=== PATIENT | male | born 1965 | race Caucasian/White ===

== ENCOUNTER → 2019-03-17 13:55 | Oncology outpatient (ONC) | payer OTHER, SELFPAY ==
--- NOTE | 2019-03-17 14:30 | P.CONONC_ITS ---
History of Present Illness - Data of Consult Patient: new to practice Consult date: 03/17/19 Requesting Physician: Hannah Baker MD Primary Care Provider: Hannah Baker MD - Consult Narrative Reason for consult: Prostate cancer Narrative: Valentin Obando is a 53 year old male. About in 2018, he was found to have an elevated PSA at 3. Three months later, it increased to 5. He then underwent biopsy of the prostate gland. GS was high per patient. Surgery and XRT were discussed. He opted and underwent radical prostatectomy. After the surgery, he moved to [place]. Recently, his PSA was < 0.01 on 02/24/2019. He has eretile dysfunction, and urinary urgency in the morning. no pain in the pelvic area. He denies any pain in the bone. He is here to establish care. No medical records available for review. We will request the medical records from [place]. CC: Noemy España MD Patient reports pain?: No Home Medications and Allergies Home Medications Medication Instructions Recorded Confirmed Type amlodipine 10 mg PO DAILY 03/17/19 03/17/19 History fluticasone propion-salmeterol 1 inh INHALATION BID 03/17/19 03/17/19 History [Advair Diskus] ipratropium bromide [Atrovent HFA] 1 puff INHALATION Q6H 03/17/19 03/17/19 History losartan 50 mg PO DAILY 03/17/19 03/17/19 History oxybutynin chloride 5 mg PO TID 03/17/19 03/17/19 History tadalafil [Cialis] 20 mg PO DAILY PRN 03/17/19 03/17/19 History Allergies Allergy/AdvReac Type Severity Reaction Status Date / Time No Known Drug Allergies Allergy Verified 03/17/19 14:47 Medical History - Medical, Surgical, Family History Medical History: Medical History (Updated 03/17/19 @ 14:48 by Noemy España MD) COPD (chronic obstructive pulmonary disease) Hypertension Kidney stone Smoking Surgical History: Surgical History (Updated 03/17/19 @ 14:43 by Noemy España MD) H/O prostatectomy Family History: Family History (Updated 03/17/19 @ 14:43 by Noemy España MD) Other Prostate cancer - Social History Smoking Status: Current every day smoker Smoking packs per day: 1 Years smoked: 30 Substance Use Type: does not use Alcohol Intake Frequency: 0-2 drinks per day (WINE) Review of Systems All systems PM: reviewed and no additional remarkable complaints except as stated Exam Vital signs: Last Vital Signs Temp 98.6 F 03/17/19 14:41 Pulse 85 03/17/19 14:41 Resp 16 03/17/19 14:41 BP 124/80 03/17/19 14:41 Pulse Ox 98 03/17/19 14:41 ECOG 1 Narrative: Gen: WDWN, NAD, pleasant and cooperative. HEENT: NCAT, EOMI, PERRLA, anicteric sclera. Neck: Supple, No palpable thyromegaly or lymphadenopathy. Respiratory: CTAB, no wheezes audible. No JVD Cardiovascular: RRR, S1 and S2 normal, no M/G/R. Abdomen: Soft, NTND, BS normal, no palpable organomegaly Extremities: No LE pitting edema. Lymphatic: no palpable lymph nodes in the neck, axillae, or groins. Neurological: AOx3, CN II-XII grossly intact. No focal motor or sensory deficit. Psychiatric: Good judgment and insight; normal affect; normal thought process; c ooperative, no depression, no anxiety. Results - Labs I reviewed the lab tests from Dr. Baker is office on 02/24/2019. Assessment and Plan (1) Prostate cancer 53 year old was found to have a screening PSA about 3-5 in 2018. He was diagnosed with prostate cancer after biopsy. He then had radical prostatectomy. He moves from [place] to [facility]. He comes here today for establishing care. Clinically I do not think there is any evidence to suggest disease recurrence or metastasis. PSA was < 0.01 on 02/24/2019. I talked with him that I will continue regular checkup of PSA and testosterone level. I will also request medical records from [place] Plan: 1. Medical Records from [place] 2. RTC in 3 months, CBC, CMP, PSA/T
[2019-03-17 14:41] VITALS: BP 124/80; PULSE 85; RESP 16; TEMP 37; O2SAT 98
== END ==
PROVIDERS: PCP Family Medicine; Visit Provider Internal Medicine Hematology & Oncology
DX: Z08 Encounter for follow-up examination after completed treatment for malignant neoplasm (principal); J44.9 Chronic obstructive pulmonary disease, unspecified; F17.210 Nicotine dependence, cigarettes, uncomplicated; Z85.46 Personal history of malignant neoplasm of prostate
CPT/HCPCS: 99204; 99214

== ENCOUNTER → 2019-07-06 12:37 | Outpatient (CLI) | payer OTHER, SELFPAY ==
[2019-07-06 15:38] LABS: Prostate Specific Antigen < 0.064 ng/mL (0.10-4.00)
== END ==
PROVIDERS: PCP Family Medicine; Visit Provider Specialist
DX: N40.1 Benign prostatic hyperplasia with lower urinary tract symptoms (principal)
CPT/HCPCS: 36415; 84153

== ENCOUNTER 2019-07-13 18:59 | Emergency (ER) | payer OTHER, SELFPAY ==
[2019-07-13 19:04] VITALS: BP 146/89; PULSE 101; RESP 17; TEMP 38; O2SAT 95; BMI 29.4
--- NOTE | 2019-07-13 19:27 | DI.RAD.S_ITS ---
PROCEDURE: XR CHEST 2V INDICATIONS: shortness of breath TECHNIQUE: 2 views of the chest were acquired. COMPARISON: None. FINDINGS: Surgical changes and devices: None. Lungs and pleura: Lungs are clear. No pleural effusions or pneumothorax. Mediastinum: Mediastinal contours are normal. Heart size is normal. Bones and chest wall: No suspicious bony abnormalities. Soft tissues appear unremarkable. IMPRESSION: No acute cardiopulmonary abnormality. Dictated by: Alfredo Alvarado M.D. on 07/13/2019 at 20:07 Approved by: Alfredo Alvarado M.D. on 07/13/2019 at 20:07
--- NOTE | 2019-07-13 19:30 | ED.SOB ---
HPI - SOB/Dyspnea General Chief Complaint: Shortness of Breath/Dyspnea Stated Complaint: COUGH LOW OXYGEN Time Seen by Provider: 07/13/19 19:30 Source: patient Mode of arrival: Ambulatory Limitations: no limitations History of Present Illness HPI Narrative: The patient complains of dyspnea for 1 week. He smokes 1 pack per day of cigarettes, he is also on inhalers. The dyspnea has progressed across the week. He developed a cough that is now productive cough. He was seen at the walk-in clinic before coming here. He was noted to have tightness with deep breath as well as productive cough. He was found to have a low-grade fever upon arrival here, he was unaware of fever. He denies here pressure or sinus pressure. He has a mild sore throat. He has tightness is anterior chest, especially with cough. He has no GI symptoms. He has no orthopnea or peripheral edema. He takes medications for hypertension in addition to COPD. He has no cardiac history. His no history of CHF. Related Data Home Medications Medication Instructions Recorded Confirmed fluticasone-salmeterol INHALATION 12/22/18 07/13/19 sildenafil PO 12/22/18 12/22/18 Previous Rx's Medication Instructions Recorded albuterol sulfate 90 mcg/actuation 2 puff INHALATION Q4-6H PRN #8.5 12/22/18 aerosol inhaler gram ipratropium bromide 17 1 puff INHALATION QID #12.9 gram 12/22/18 mcg/actuation HFA aerosol inhaler amoxicillin-pot clavulanate 1 tab PO BID #14 tab 07/13/19 [Augmentin] prednisone 60 mg PO DAILY 5 Days #15 tab 07/13/19 Allergies Allergy/AdvReac Type Severity Reaction Status Date / Time No Known Drug Allergies Allergy Verified 07/13/19 19:04 Review of Systems Review of Systems ROS Unobtainable: All systems reviewed & are unremarkable except as noted in HPI and below Constitutional Constitutional: Denies chills, Denies fever(s), Denies headache(s), Denies lethargy and Denies weakness Eyes Eyes: Denies change in vision and Denies eye discharge ENT Ears, Nose, Mouth, and Throat: Denies change in voice, Denies dizziness, Denies otalgia, Denies headache(s), Denies neck pain and Reports sore throat Cardiovascular Cardiovascular: Reports dyspnea Comments: Central sternal chest pain increased with cough. Respiratory Respiratory: Reports cough, Reports dyspnea and Reports wheezing Gastrointestinal Gastrointestinal: Denies abdominal pain, Denies diarrhea, Denies nausea and Denies vomiting Musculoskeletal Musculoskeletal: Denies neck pain Comments: No extremity pain or edema Integumentary/Breasts Skin/Breast: Denies erythema and Denies rash Neurologic Neurologic: Denies confusion, Denies dizziness, Denies headache(s) and Denies weakness Psychiatric Psychiatric: Denies confusion and Denies depression Allergic/Immunologic Allergic/Immunologic: Reports wheezing [facility] Medical History Hypertension (Acute) Surgical History (Updated 07/13/19 @ 19:52 by Carlos Payton MD) No pertinent past surgical history (Acute) Social History Smoking Status: Current every day smoker Social History Smoking Status: Current every day smoker Exam Initial Vital Signs Initial Vital Signs: Vital Signs Temperature 100.4 F H 07/13/19 19:04 Pulse Rate 101 H 07/13/19 19:04 Respiratory Rate 17 07/13/19 19:04 Blood Pressure 146/89 H 07/13/19 19:04 Pulse Oximetry 95 07/13/19 19:04 Const General: cooperative, healthy appearing and well developed Nutritional Appearance: well nourished Orientation: alert, awake, oriented x3 and not confused [facility] Head: normocephalic and atraumatic Nose: external nose normal Face and sinus: sinuses nontender Mouth: oral mucosae normal and moist mucous membranes Throat: tonsils normal and uvula midline Eyes General: appearance normal, both eyes and all related structures Neck Neck: supple, No lymphadenopathy and No JVD Chest Other: Tenderness across the sternum with palpation. Resp Effort & Inspection: cough, no stridor and not tachypneic Other: Wheezes RLL. Cardio Palpation: normal PMI Rate: regular rate Rhythm: regular rhythm Heart Sounds: S1 normal, S2 normal, no click, no gallops and no murmurs GI Inspection: non-distended Palpation: soft, no hepatosplenomegaly, No guarding and No tender Auscultation: normal bowel sounds Back/Spine/Pelvis Back: No CVA tenderness Skin General: no rashes or lesions noted Neuro General: alert, awake and oriented x3 Extrem General: No calf tenderness and No edema Psych Appearance: well kempt Mental Status: mental status grossly normal Attitude: cooperative Thought Content: normal Judgment: judgment good Course Course Course Narrative: The patient's symptoms resolved significantly with IV Solu-Medrol, as well as an additional neb. There is no indication severe infection, but is a smoker with COPD and fever with productive cough. His chest x-ray is clear. I have started him on Augmentin for chronic bronchitis. He will be discharged on Augmentin, prednisone as well as his regular neb treatment. Orders Ordered: ED Orders 07/13/19 19:26 EKG-12 Lead Stat 07/13/19 19:27 XR chest 2V Stat Measure peak expiratory flow ONCE RT Consult Eval and Treat Now 07/13/19 20:19 Complete Blood Count AUTO DIFF Stat Comprehensive Metabolic Panel Stat Lactate (Lactic Acid) Stat 07/13/19 21:41 FLU A and B [Influenza A and B by PCR Rapid] Stat Discontinued Medications Albuterol (Ventolin) 2.5 mg INH NOW ONE Stop: 07/13/19 19:27 Last Admin: 07/13/19 19:45 Dose: 2.5 mg Documented by: RENE Albuterol/Ipratropium (Duoneb) 3 ml INH NOW ONE Stop: 07/13/19 19:42 Last Admin: 07/13/19 22:07 Dose: 3 ml Documented by: ABDIRIZAK Amoxicillin/Clavulanate Potassium (Augmentin 875-125 Mg) 1 tab PO NOW ONE Stop: 07/13/19 21:49 Last Admin: 07/13/19 21:54 Dose: 1 tab Documented by: NICK Methylprednisolone (Solu-Medrol 125 Mg Vial) 125 mg IV NOW ONE Stop: 07/13/19 19:42 Last Admin: 07/13/19 20:39 Dose: 125 mg Documented by: NICK Vital Signs Vital signs: Vital Signs - 8 hr 07/13/19 19:46 07/13/19 21:00 07/13/19 21:30 Temperature 99.7 F H Pulse Rate 92 H 94 H 93 H Respiratory Rate 13 22 16 Blood Pressure [Left Arm] 148/90 H 119/86 Pulse Oximetry 100 95 95 MDM - SOB/Dyspnea Lab Data Result diagrams: 07/13/19 20:19 07/13/19 20:19 Labs: Lab Results 07/13/19 07/13/19 07/13/19 Range/Units 20:19 20:19 20:19 WBC 10.4 (4.5-11.0) X10^3/uL RBC 4.80 (4.5-5.9) X10^6/uL Hgb 15.3 (13.5-17.5) g/dL Hct 44.5 (41-53) % MCV 92.8 (80-100) fL MCH 31.9 (26-34) PG MCHC 34.4 (30-36) % RDW 13.2 (11.6-14.8) % Plt Count 134 L (150-400) X10^3/uL Neut % (Auto) 76.0 H (50-75) % Lymph % (Auto) 12.3 L (25-40) % [place] % (Auto) 9.5 (3-14) % Eos % (Auto) 1.6 L (2-4) % Baso % (Auto) 0.6 (0-2) % Neut # (Auto) 7900 H (9284-5862) /uL Lymph # (Auto) 1300 (6741-5432) /uL [place] # (Auto) 1000 H (0-900) /uL Eos # (Auto) 200 (0-450) /uL Baso # (Auto) 100 (0-100) /uL Sodium 138 (137-145) mmol/L Potassium 3.9 (3.4-5.1) mmol/L Chloride 103 (98-107) mmol/L Carbon Dioxide 25 (22-32) mmol/L BUN 19 (9-20) mg/dL Creatinine 0.90 (0.66-1.25) mg/dL Estimated GFR > 60.0 (>60) mL/min BUN/Creatinine Ratio 21.1 (6-22) Glucose 113 H (70-100) mg/dL Lactate 1.1 (0.7-2.1) mmol/L Calcium 9.3 (8.4-10.2) mg/dL Total Bilirubin 0.8 (0.2-1.3) mg/dL AST 25 (17-59) IU/L ALT 33 (21-72) IU/L Alkaline Phosphatase 95 (38-126) U/L Total Protein 7.4 (6.3-8.2) g/dL Albumin 4.4 (3.5-5.0) g/dL Globulin 3.0 (1.7-4.1) g/dL Albumin/Globulin Ratio 1.5 (1.0-2.8) Influenza A & B (PCR) (Negative) 07/13/19 Range/Units 21:41 WBC (4.5-11.0) X10^3/uL RBC (4.5-5.9) X10^6/uL Hgb (13.5-17.5) g/dL Hct (41-53) % MCV (80-100) fL MCH (26-34) PG MCHC (30-36) % RDW (11.6-14.8) % Plt Count (150-400) X10^3/uL Neut % (Auto) (50-75) % Lymph % (Auto) (25-40) % [place] % (Auto) (3-14) % Eos % (Auto) (2-4) % Baso % (Auto) (0-2) % Neut # (Auto) (0267-4998) /uL Lymph # (Auto) (8411-2497) /uL Ad[place] # (Auto) (0-900) /uL Eos # (Auto) (0-450) /uL Baso # (Auto) (0-100) /uL Sodium (137-145) mmol/L Potassium (3.4-5.1) mmol/L Chloride (98-107) mmol/L Carbon Dioxide (22-32) mmol/L BUN (9-20) mg/dL Creatinine (0.66-1.25) mg/dL Estimated GFR (>60) mL/min BUN/Creatinine Ratio (6-22) Glucose (70-100) mg/dL Lactate (0.7-2.1) mmol/L Calcium (8.4-10.2) mg/dL Total Bilirubin (0.2-1.3) mg/dL AST (17-59) IU/L ALT (21-72) IU/L Alkaline Phosphatase (38-126) U/L Total Protein (6.3-8.2) g/dL Albumin (3.5-5.0) g/dL Globulin (1.7-4.1) g/dL Albumin/Globulin Ratio (1.0-2.8) Influenza A & B (PCR) Negative (Negative) Imaging Data Chest x-ray: Radiologist's impression: [address] [address] XRay Report Signed Patient: Valentin Obando PMR#: [id number] : 1965Acct:[id number] Age/Sex: 54 / MDate of Service: 07/13/19 Loc: ED Accession Number: [id number] Procedure: XR chest 2V Ordering Provider: Carlos Payton MD PROCEDURE: XR CHEST 2V INDICATIONS: shortness of breath TECHNIQUE: 2 views of the chest were acquired. COMPARISON: None. FINDINGS: Surgical changes and devices: None. Lungs and pleura: Lungs are clear. No pleural effusions or pneumothorax. Mediastinum: Mediastinal contours are normal. Heart size is normal. Bones and chest wall: No suspicious bony abnormalities. Soft tissues appear unremarkable. IMPRESSION: No acute cardiopulmonary abnormality. Dictated by: Alfredo Alvarado M.D. on 07/13/2019 at 20:07 Approved by: Alfredo Alvarado M.D. on 07/13/2019 at 20:07 ECG Data Attestation: I personally reviewed and interpreted this ECG as follows: Discharge Plan Departure Patient Disposition: Home Clinical Impression: Asthma exacerbation in COPD Chronic bronchitis Qualifiers: Chronic bronchitis type: mucopurulent Qualified Code(s): J41.1 - Mucopurulent chronic bronchitis Discharge Date/Time: 07/13/19 22:14 Instructions: Chronic Bronchitis Activity Restrictions/Additional Instructions: Use your inhaler as previously directed. Prednisone 60 mg daily x5 days. Augmentin 2 times daily for 7 days. I recommend he stop smoking cigarettes. Follow-up with her doctor later this week for recheck. Return the ER for increasing difficulty breathing or chest pain. Prescriptions: New amoxicillin-pot clavulanate [Augmentin] 875-125 mg tablet 1 tab PO BID Qty: 14 RF: 0 prednisone 20 mg tablet 60 mg PO DAILY 5 Days Qty: 15 RF: 0 No Action fluticasone-salmeterol INHALATION RF: 0 sildenafil PO RF: 0 albuterol sulfate 90 mcg/actuation HFA aerosol inhaler 2 puff INHALATION Q4-6H PRN (Reason: shortness of breath or wheezing) Qty: 8.5 RF: 0 ipratropium bromide 17 mcg/actuation HFA aerosol inhaler 1 puff INHALATION QID Qty: 12.9 RF: 0
[2019-07-13] MEDS: ALBUTEROL 2.5 MG/3 ML NEB (ADULT) INH (19:45)
[2019-07-13 19:46] VITALS: PULSE 92; RESP 13; O2SAT 100
--- NOTE | 2019-07-13 19:54 | PC.NURSE ---
respiratory therapy at bedside
[2019-07-13 20:32] LABS: Add Manual Diff / Slide Review NO; Basophils Absolute Auto 100 /uL (0-100); Basophils Percent Auto 0.6 % (0-2); Eosinophils Absolute Auto 200 /uL (0-450); Eosinophils Percent Auto 1.6 % (2-4); Hematocrit 44.5 % (41-53); Hemoglobin 15.3 g/dL (13.5-17.5); Lymphocytes Absolute Auto 1300 /uL (1100-4500); Lymphocytes Percent Auto 12.3 % (25-40); Mean Corpuscular HGB Conc 34.4 % (30-36); Mean Corpuscular Hemoglobin 31.9 PG (26-34); Mean Corpuscular Volume 92.8 fL (80-100); Monocytes Absolute Auto 1000 /uL (0-900); Monocytes Percent Auto 9.5 % (3-14); Neutrophils Absolute Auto 7900 /uL (1500-7000); Platelet Count 134 X10^3/uL (150-400); Red Cell Distribution Width 13.2 % (11.6-14.8); White Blood Cell Count 10.4 X10^3/uL (4.5-11.0)
[2019-07-13] MEDS: methylPREDNISolone 125 MG/2 ML VIAL IV (20:39)
[2019-07-13 20:42] LABS: Alanine Aminotransferase 33 IU/L (21-72); Albumin 4.4 g/dL (3.5-5.0); Albumin Globulin Ratio 1.5 (1.0-2.8); Alkaline Phosphatase 95 U/L (38-126); Aspartate Aminotransferase 25 IU/L (17-59); BUN Creatinine Ratio 21.1 (6-22); Bilirubin Total 0.8 mg/dL (0.2-1.3); Blood Urea Nitrogen 19 mg/dL (9-20); Calcium 9.3 mg/dL (8.4-10.2); Carbon Dioxide 25 mmol/L (22-32); Chloride 103 mmol/L (98-107); Estimated Glomerular Filt Rate > 60.0 mL/min (>60); Glucose 113 mg/dL (70-100); HEMOLYSIS < 15 (0-50); Lactate (Lactic Acid) 1.1 mmol/L (0.7-2.1); Potassium 3.9 mmol/L (3.4-5.1); Sodium 138 mmol/L (137-145); Total Protein 7.4 g/dL (6.3-8.2)
[2019-07-13 21:00] VITALS: BP 148/90; PULSE 94; RESP 22; O2SAT 95
[2019-07-13 21:30] VITALS: BP 119/86; PULSE 93; RESP 16; TEMP 37.6; O2SAT 95
[2019-07-13] MEDS: AMOXICILLIN/CLAV 875/125 MG 1 TAB PO (21:54)
[2019-07-13 22:07] LABS: Influenza A and B by PCR Rapid Negative (Negative)
[2019-07-13] MEDS: ALBUTEROL/IPRATROPIUM 3 ML AMPUL INH (22:07)
== END 2019-07-13 22:14 | disposition home or self-care (01) ==
PROVIDERS: Emergency Provider Emergency Medicine
DX: J41.1 Mucopurulent chronic bronchitis (principal)
CPT/HCPCS: 36415; 71046; 80053; 83605; 85025; 87400; 87502; 93005; 93010; 94150; 94640; 96374; 99282; 99285; J2930; J7613

== ENCOUNTER → 2021-01-06 10:13 | Outpatient (CLI) | payer OTHER, SELFPAY ==
--- NOTE | 2021-01-06 | DI.RAD.S_ITS ---
PROCEDURE: XR SHOULDER LT MIN 2V INDICATIONS: Shoulder pain TECHNIQUE: 3 views of the shoulder were acquired. COMPARISON: [facility], CR, XR SHOULDER RT MIN 2V, 01/06/2021, 10:15. [facility], CR, XR CHEST 2V, 07/13/2019, 19:26. FINDINGS: Bones: Very shallow appearance of the glenoid. Osseous structures otherwise intact and normal in appearance. Soft tissues: No suspicious soft tissue calcifications. IMPRESSION: Very shallow and dysmorphic appearance of the glenoid (finding also noted on the right on the comparison chest radiograph from June 2019). Osseous structures otherwise intact and normal in appearance. Consider shoulder CT for more comprehensive evaluation. Dictated by: Esau Brito M.D. on 01/06/2021 at 10:42 Approved by: Esau Brito M.D. on 01/06/2021 at 10:43
--- NOTE | 2021-01-06 | DI.RAD.S_ITS ---
PROCEDURE: XR SHOULDER RT MIN 2V INDICATIONS: shoulder pain TECHNIQUE: 3 views of the shoulder were acquired. COMPARISON: None. FINDINGS: Bones: Shallow and dysmorphic appearance of the glenoid (a finding also present on the left). No significant degenerative changes or other significant abnormality. Soft tissues: No suspicious soft tissue calcifications. IMPRESSION: Shallow in dysmorphic appearance of the glenoid. Consider shoulder CT for more comprehensive evaluation. Dictated by: Esau Brito M.D. on 01/06/2021 at 10:43 Approved by: Esau Brito M.D. on 01/06/2021 at 10:44
== END ==
PROVIDERS: PCP Family Medicine; Referring Provider Family Medicine; Visit Provider Family Medicine
DX: M25.512 Pain in left shoulder (principal); M25.511 Pain in right shoulder
CPT/HCPCS: 73030

== ENCOUNTER → 2021-01-16 11:08 | Outpatient (CLI) | payer OTHER, SELFPAY ==
--- NOTE | 2021-01-16 | DI.RAD.S_ITS ---
PROCEDURE: XR CERVICAL SPINE 2V OR 3V INDICATIONS: NECK PAIN TECHNIQUE: 3 view(s) of the cervical spine were acquired. COMPARISON: None. FINDINGS: Bones: No fractures or dislocations to the C7 level. The lateral masses of C1 appear intact on the odontoid view. No suspicious bony lesions. Mild C4-C5 and C5-C6 degenerative disc disease. Mild C6-C7 facet arthropathy. Mild bilateral C4-C5 and C5-C6 uncovertebral joint hypertrophy. Soft tissues: No prevertebral soft tissue swelling. IMPRESSION: 1. Multilevel degenerative disc disease. 2. Multilevel facet and uncovertebral arthropathy. 3. No fracture. No acute osseous lesion. If symptoms and/or clinical suspicion for pathology persists, evaluation with MRI should be considered for further assessment. Dictated by: Diana Keane MD, PhD on 01/16/2021 at 17:30 Approved by: Diana Keane MD, PhD on 01/16/2021 at 17:31
--- NOTE | 2021-01-16 11:10 | DI.MRI.S_ITS ---
PROCEDURE: MR PELIS WO/W CON INDICATIONS: Prostate cancer TECHNIQUE: Coronal HASTE, axial T1 FSE with fat saturation, 3-plane nonbreath-hold T2 FSE. After the administration of contrast, dynamic axial, delayed axial and coronal VIBE or 2-D FLASH with fat saturation through the pelvis. Optional diffusion weighted imaging and ADC may be performed. COMPARISON: None. FINDINGS: Image quality: Good. Prostate: Surgically absent. Genitourinary system: Bladder is unremarkable. Distal ureters are non distended. Bilateral hydroceles. Bowel and peritoneum: No pathologic free pelvic fluid. Inferior colon and small bowel loops are normal in caliber. Nodes and vessels: No pelvic or inguinal adenopathy by size criteria. Iliac vessels are normal in caliber. Soft tissues: No definite inguinal hernias. Bones: Marrow demonstrates normal overall signal, without lesions to suggest metastases. IMPRESSION: Post prostatectomy. No enlarged nodes seen. Bilateral hydroceles. Dictated by: Alfredo Alvarado M.D. on 01/16/2021 at 19:55 Approved by: Alfredo Alvarado M.D. on 01/16/2021 at 20:07
== END ==
PROVIDERS: Family Provider Family Medicine; PCP Family Medicine; Referring Provider Specialist; Visit Provider Specialist
DX: C61 Malignant neoplasm of prostate (principal); N43.3 Hydrocele, unspecified; M50.121 Cervical disc disorder at C4-C5 level with radiculopathy; M47.22 Other spondylosis with radiculopathy, cervical region
CPT/HCPCS: 72040; 72197

== ENCOUNTER 2021-02-21 16:45 | Outpatient (RCR) | payer OTHER, SELFPAY ==
--- NOTE | 2021-01-15 17:30 | PT.OIE ---
Current Diagnoses Brachial plexus disorders (01/15/21) Pain in right shoulder (01/15/21) Pain in left shoulder (01/15/21) Adhesive capsulitis of right shoulder (01/15/21) Adhesive capsulitis of left shoulder (01/15/21) Past Medical History (Last Updated 11/29/20 @ 10:46 by Hilton Mckeon MD) COPD (chronic obstructive pulmonary disease) Erectile dysfunction after radical prostatectomy Excessive daytime sleepiness Hypertension Insomnia Kidney stone Nicotine dependence, unspecified, uncomplicated Obstructive sleep apnea Prostate cancer Prostate cancer Past Surgical History (Last Reviewed 10/05/20 @ 18:05 by Hilton Mckeon MD) H/O prostatectomy No pertinent past surgical history Visit Care Team Role Provider Type Hannah Baker MD Attending Provider Physician Family Provider Primary Care Provider Referring Provider Specialty: Family Practice Address: [address] [place] [address], [facility] Email: [email or web address] Physical Therapy Initial Evaluation PT-OP-A Visit Information Start: 01/15/21 17:34 Freq: Status: Active Protocol: Document 01/15/21 16:45 DCW (Rec: 01/15/21 17:50 DCW [id number]) Out-Patient Physical Therapy Visit Information Visit Information Visit Type Initial Evaluation Visit Start Time 16:45 Visit Stop Time 17:30 Total Visit Minutes 45 Visit Number 1 Number of DIESEL SERVICE JOURNEYMAN Visits 0 Evaluation Information Evaluation Date 01/15/21 PT-OP-B Current Condition Start: 01/15/21 17:34 Freq: Status: Active Protocol: Document 01/15/21 16:45 DCW (Rec: 01/15/21 17:50 DCW [id number]) Current Condition History of Current Condition Onset Date Multi-year history Current Complaints Bilateral arm numbness/ tingling, limited bilateral shoulder ROM History of Current Condition Pt is a 55 year old male presenting with a multi-year history of bilateral shoulder pain and stiffness. Pt reports he has always had very poor ROM when lifting his arms out to the side, but it has worsened over the last few years. Pt additionally is frequently woken up at night by tingling and numbness in his hands and arms. Pt reports putting on his jacket is troublesome. When lifting his arms into abduction, pt notes it feels like the muscles just bind up. Prior Treatments and Tests Shoulder x-ray: IMPRESSION: Shallow in dysmorphic appearance of the glenoid. Consider shoulder CT for more comprehensive evaluation. Per : Esau Brito M.D. on 2020 PT-OP-C Subjective Start: 01/15/21 17:34 Freq: Status: Active Protocol: Document 01/15/21 16:45 DCW (Rec: 01/15/21 17:50 DCW [id number]) OP-PT Subjective Patient Comments Patient Comments My arms fall asleep all the time. Just in bed, or when I'm riding my motorcycle. I can't ride my motorcycle for more than 15 minutes without my arms falling asleep. Patient Questionnaires Quick Dash- Upper Extremity Quick Dash UE Score 45.45% Quick Dash UE Impairment 40 to 59% Impaired (Score 40- 59) OP-PT Pain Assessment Pain Assessment Grid Paper Pain Assessment Grid Completed Yes Location Bilateral Shoulder Intensity 4 Scale Used Numeric (0 - 10) PT-OP-E Functional Tests Start: 01/15/21 17:34 Freq: Status: Active Protocol: Document 01/15/21 16:45 DCW (Rec: 01/16/21 13:58 DCW [id number]) Functional Tests Apley's Scratch Test Action 2- Left T3 Action 2- Right T3 Action 3- Left L2 Action 3- Right L2 PT-OP-F Manual Assessment Start: 01/15/21 17:34 Freq: Status: Active Protocol: Document 01/15/21 16:45 DCW (Rec: 01/16/21 13:58 DCW [id number]) Manual Assessments Soft Tissue Assessment Soft Tissue Mobility Assessment Moderate tone and tenderness to palpation 3/4: wincing and withdraw along bilateral upper trap, bilateral scalenes Moderate tone and tenderness to palpation 2/4: pain with wincing bilateral supraspinatus PT-OP-K Range of Motion Start: 01/15/21 17:34 Freq: Status: Active Protocol: Document 01/15/21 16:45 DCW (Rec: 01/16/21 13:58 DCW [id number]) Shoulder Goniometric Range of Motion Shoulder Right Passive Flexion 170 Abduction 170 Right Active Testing Position Sitting Flexion 158 Abduction 92 Left Passive Shoulder ROM WFL Yes Testing Position Supine Flexion 170 Abduction 170 Left Active Testing Position Sitting Flexion 160 Abduction 96 PT-OP-L Special Tests Start: 01/15/21 17:34 Freq: Status: Active Protocol: Document 01/15/21 16:45 DCW (Rec: 01/16/21 13:58 DCW [id number]) Special Tests Shoulder Special Tests Painful Arc Test Results Negative Bilaterally Speed's Biceps Test Results Negative Bilaterally Passive ER Rotator Cuff Test Results Negative Bilaterally Lift-Off Rotator Cuff Test Results Negative Bilaterally Leonard Vamsi Impingement Test Results Negative Bilaterally Empty Can Test Results Negative Bilaterally Belly Press Test Results Negative Bilaterally Apprehension Test Test Results Negative Bilaterally PT-OP-Q Treatments Start: 01/15/21 17:34 Freq: Status: Active Protocol: Document 01/15/21 16:45 DCW (Rec: 01/16/21 13:58 DCW [id number]) Therapeutic Exercises Sitting Exercises 1 Sitting Exercise Name Upper trap stretch Side bilateral PT-OP-T Assessment and Plan Start: 01/15/21 17:34 Freq: Status: Active Protocol: Document 01/15/21 16:45 DCW (Rec: 01/16/21 13:58 [facility] [id number]) Physical Therapy Assessment Rehab Potential Rehabilitation Potential Good Evaluation Complexity Number of Personal Factors/Comorbidities 1-2 Number of Body Systems Impaired 1-2 Clinical Presentation at Evaluation Evolving Impairments Impairments Functional Activities, Functional Mobility,Pain,ROM, Soft Tissue Mobility,Strength, Tone Goals Three Impairment Shoulder pain when donning/ doffing jacket Biology Intern Goal (LTG) Pt to exhibit improvement in bilateral shoulder IR to reach at least T10 to enable him to don/doff jacket without increased pain. LTG Duration 03/13/21 Two Impairment Pt wakes up nightly around 3 am due to tingling in his arms Care Home Goal (LTG) Pt to report sleeping through the night at least 4 nights a week without waking due to arm and hand tingling. LTG Duration 03/13/21 One Impairment Pt does not have an appropriate home exercise program Short Term Goal (STG) Pt to be independent and compliant with an appropriate HEP STG Duration 02/13/21 Assessment Summary Assessment Pt presents with signs and symptoms which may be indicative of Thoracic Outlet Syndrome vs bilateral supraspinatus tears. Pt's complaints of waking up during the night with tingling and numbness, as well as numbness when riding his motorcycle, combined with his moderate tone in his scalenes, could be the result of TOS. On the other hand, pt limited AROM into abduction may suggest supraspinatus involvement, however pt did not demonstrate any positive rotator cuff tests, so bilateral supraspinatus tears would probably be less likely. Pt felt some relief with brief trial of STM to his scalenes and manual cervical traction. Pt would likely benefit from skilled therapy focusing on STM, stretching, manual and mechanical traction, and increasing shoulder ROM. Pt was also given instructions for seated positioning to try prior to bed, in an effort to decrease tone prior to bed, which may result in his tingling and numbness occurring earlier so it does not disturb his sleep. Physical Therapy Plan Frequency and Duration Frequency of Treatment 1x/Week Duration of Treatment 8 weeks Plan of Care Start Date 01/16/21 Plan of Care End Date 03/13/21 Therapeutic Interventions Therapeutic Interventions Home Exercise Program,Joint Mobilizations,Manual Therapy, Patient/Caregiver Education, Self-Care/Home Management,Soft Tissue Mobilization, Therapeutic Activities, Therapeutic Exercises Modalities Cold Pack/Ice Massage,Electric Stimulation,Hot Packs, Traction- Mechanical, Ultrasound Next Visit Focus/Plan Next Note Type Treatment Note Next Visit Plan STM, Mechanical traction, stretching
--- NOTE | 2021-01-15 17:30 | PT.OPPOC ---
Physical, Occupational & Speech Therapy At [facility] Current Diagnoses Brachial plexus disorders (01/15/21) Pain in right shoulder (01/15/21) Pain in left shoulder (01/15/21) Adhesive capsulitis of right shoulder (01/15/21) Adhesive capsulitis of left shoulder (01/15/21) Visit Care Team Role Provider Type Hannah Baker MD Attending Provider Physician Family Provider Primary Care Provider Referring Provider Specialty: Family Practice Address: [address] [place] [address], [facility] Email: [email or web address] Plan Of Care PT-OP-T Assessment and Plan Start: 01/15/21 17:34 Freq: Status: Active Protocol: Document 01/15/21 16:45 DCW (Rec: 01/16/21 13:58 DCW [id number]) Physical Therapy Assessment Rehab Potential Rehabilitation Potential Good Evaluation Complexity Number of Personal Factors/Comorbidities 1-2 Number of Body Systems Impaired 1-2 Clinical Presentation at Evaluation Evolving Impairments Impairments Functional Activities, Functional Mobility,Pain,ROM, Soft Tissue Mobility,Strength, Tone Goals Three Impairment Shoulder pain when donning/ doffing jacket Radiologic Technologist Chief Goal (LTG) Pt to exhibit improvement in bilateral shoulder IR to reach at least T10 to enable him to don/doff jacket without increased pain. LTG Duration 03/13/21 Two Impairment Pt wakes up nightly around 3 am due to tingling in his arms Correction Goal (LTG) Pt to report sleeping through the night at least 4 nights a week without waking due to arm and hand tingling. LTG Duration 03/13/21 One Impairment Pt does not have an appropriate home exercise program Short Term Goal (STG) Pt to be independent and compliant with an appropriate HEP STG Duration 02/13/21 Assessment Summary Assessment Pt presents with signs and symptoms which may be indicative of Thoracic Outlet Syndrome vs bilateral supraspinatus tears. Pt's complaints of waking up during the night with tingling and numbness, as well as numbness when riding his motorcycle, combined with his moderate tone in his scalenes, could be the result of TOS. On the other hand, pt limited AROM into abduction may suggest supraspinatus involvement, however pt did not demonstrate any positive rotator cuff tests, so bilateral supraspinatus tears would probably be less likely. Pt felt some relief with brief trial of STM to his scalenes and manual cervical traction. Pt would likely benefit from skilled therapy focusing on STM, stretching, manual and mechanical traction, and increasing shoulder ROM. Pt was also given instructions for seated positioning to try prior to bed, in an effort to decrease tone prior to bed, which may result in his tingling and numbness occurring earlier so it does not disturb his sleep. Physical Therapy Plan Frequency and Duration Frequency of Treatment 1x/Week Duration of Treatment 8 weeks Plan of Care Start Date 01/16/21 Plan of Care End Date 03/13/21 Therapeutic Interventions Therapeutic Interventions Home Exercise Program,Joint Mobilizations,Manual Therapy, Patient/Caregiver Education, Self-Care/Home Management,Soft Tissue Mobilization, Therapeutic Activities, Therapeutic Exercises Modalities Cold Pack/Ice Massage,Electric Stimulation,Hot Packs, Traction- Mechanical, Ultrasound Next Visit Focus/Plan Next Note Type Treatment Note Next Visit Plan STM, Mechanical traction, stretching Plan of Care Dates Plan of Care Start Date 01/16/21 Plan of Care End Date 03/13/21 Electronically Signed by: Remy Andre, PT 01/16/21 1235 Please Sign and Return: I have reviewed this Plan of Care and certify that the skilled therapy services above are required to meet the patient?s needs. Physician Signature Date Printed Name and Credentials Clinical Instructor Signature Printed Name and Credentials
--- NOTE | 2021-02-07 17:33 | PT.OTN ---
Current Diagnoses Brachial plexus disorders (02/07/21) Pain in right shoulder (02/07/21) Pain in left shoulder (02/07/21) Adhesive capsulitis of right shoulder (02/07/21) Adhesive capsulitis of left shoulder (02/07/21) Physical Therapy Treatment Note PT-OP-A Visit Information Start: 01/15/21 17:34 Freq: Status: Active Protocol: Document 02/07/21 16:45 DCW (Rec: 02/07/21 17:33 DCW [id number]) Out-Patient Physical Therapy Visit Information Visit Information Visit Type Treatment Note Visit Start Time 16:45 Visit Stop Time 17:25 Total Visit Minutes 40 Visit Number 2 Number of LABEL REMOVER Visits 0 Evaluation Information Evaluation Date 01/15/21 PT-OP-B Current Condition Start: 01/15/21 17:34 Freq: Status: Active Protocol: Document 01/15/21 16:45 DCW (Rec: 01/15/21 17:50 DCW [id number]) Current Condition History of Current Condition Onset Date Multi-year history Current Complaints Bilateral arm numbness/ tingling, limited bilateral shoulder ROM History of Current Condition Pt is a 55 year old male presenting with a multi-year history of bilateral shoulder pain and stiffness. Pt reports he has always had very poor ROM when lifting his arms out to the side, but it has worsened over the last few years. Pt additionally is frequently woken up at night by tingling and numbness in his hands and arms. Pt reports putting on his jacket is troublesome. When lifting his arms into abduction, pt notes it feels like the muscles just bind up. Prior Treatments and Tests Shoulder x-ray: IMPRESSION: Shallow in dysmorphic appearance of the glenoid. Consider shoulder CT for more comprehensive evaluation. Per : Esau Brito M.D. on 2020 PT-OP-C Subjective Start: 01/15/21 17:34 Freq: Status: Active Protocol: Document 02/07/21 16:45 DCW (Rec: 02/07/21 17:33 DCW [id number]) OP-PT Subjective Patient Comments Patient Comments Pt still waking up in the middle of the night with left arm tingling, notes his right arm isn't as bad. Reports everything else feels the same. Does admit that he has not done any of the suggested stretching PT-OP-E Functional Tests Start: 01/15/21 17:34 Freq: Status: Active Protocol: Document 01/15/21 16:45 DCW (Rec: 01/16/21 13:58 DCW [id number]) Functional Tests Apley's Scratch Test Action 2- Left T3 Action 2- Right T3 Action 3- Left L2 Action 3- Right L2 PT-OP-F Manual Assessment Start: 01/15/21 17:34 Freq: Status: Active Protocol: Document 01/15/21 16:45 DCW (Rec: 01/16/21 13:58 DCW [id number]) Manual Assessments Soft Tissue Assessment Soft Tissue Mobility Assessment Moderate tone and tenderness to palpation 3/4: wincing and withdraw along bilateral upper trap, bilateral scalenes Moderate tone and tenderness to palpation 2/4: pain with wincing bilateral supraspinatus PT-OP-K Range of Motion Start: 01/15/21 17:34 Freq: Status: Active Protocol: Document 01/15/21 16:45 DCW (Rec: 01/16/21 13:58 DCW [id number]) Shoulder Goniometric Range of Motion Shoulder Right Passive Flexion 170 Abduction 170 Right Active Testing Position Sitting Flexion 158 Abduction 92 Left Passive Shoulder ROM WFL Yes Testing Position Supine Flexion 170 Abduction 170 Left Active Testing Position Sitting Flexion 160 Abduction 96 PT-OP-L Special Tests Start: 01/15/21 17:34 Freq: Status: Active Protocol: Document 01/15/21 16:45 DCW (Rec: 01/16/21 13:58 DCW [id number]) Special Tests Shoulder Special Tests Painful Arc Test Results Negative Bilaterally Speed's Biceps Test Results Negative Bilaterally Passive ER Rotator Cuff Test Results Negative Bilaterally Lift-Off Rotator Cuff Test Results Negative Bilaterally Leonard Vamsi Impingement Test Results Negative Bilaterally Empty Can Test Results Negative Bilaterally Belly Press Test Results Negative Bilaterally Apprehension Test Test Results Negative Bilaterally PT-OP-Q Treatments Start: 01/15/21 17:34 Freq: Status: Active Protocol: Document 02/07/21 16:45 DCW (Rec: 02/07/21 17:33 DCW [id number]) Cardio Equipment Upper Body Ergometer (UBE) Duration (Minutes) 5 RPM 60 Seat Position 13 Height 3.5 Therapeutic Exercises Sitting Exercises 3 Sitting Exercise Name Posterior Scalene stretch Side bilateral 2 Sitting Exercise Name Anterior Scalene stretch Side bilateral 1 Sitting Exercise Name Upper trap stretch Side bilateral Manual Therapy Treatment Soft Tissue Mobilization 2 Body Location R>L Scalenes 1 Body Location R>L Upper Trap Manual Traction Cervical Details Cervical traction Body Position Supine PT-OP-T Assessment and Plan Start: 01/15/21 17:34 Freq: Status: Active Protocol: Document 02/07/21 16:45 DCW (Rec: 02/07/21 17:33 DCW [id number]) Physical Therapy Assessment Impairments Impairments Functional Activities, Functional Mobility,Pain,ROM, Soft Tissue Mobility,Strength, Tone Goals Three Impairment Shoulder pain when donning/ doffing jacket Correction Goal (LTG) Pt to exhibit improvement in bilateral shoulder IR to reach at least T10 to enable him to don/doff jacket without increased pain. LTG Duration 03/13/21 Two Impairment Pt wakes up nightly around 3 am due to tingling in his arms Correction Goal (LTG) Pt to report sleeping through the night at least 4 nights a week without waking due to arm and hand tingling. LTG Duration 03/13/21 One Impairment Pt does not have an appropriate home exercise program Short Term Goal (STG) Pt to be independent and compliant with an appropriate HEP STG Duration 02/13/21 Assessment Summary Assessment Pt has not made any progress since his eval, however he also admits he has not done any of the recommended activities over the last 23 days. Instructed pt to be more compliant with cervical stretching. Physical Therapy Plan Frequency and Duration Frequency of Treatment 1x/Week Duration of Treatment 8 weeks Plan of Care Start Date 01/16/21 Plan of Care End Date 03/13/21 Therapeutic Interventions Therapeutic Interventions Home Exercise Program,Joint Mobilizations,Manual Therapy, Patient/Caregiver Education, Self-Care/Home Management,Soft Tissue Mobilization, Therapeutic Activities, Therapeutic Exercises Modalities Cold Pack/Ice Massage,Electric Stimulation,Hot Packs, Traction- Mechanical, Ultrasound Next Visit Focus/Plan Next Note Type Treatment Note Next Visit Plan STM, Mechanical traction, stretching
--- NOTE | 2021-02-21 17:37 | PT.OTN ---
Current Diagnoses Brachial plexus disorders (02/21/21) Pain in right shoulder (02/21/21) Pain in left shoulder (02/21/21) Adhesive capsulitis of right shoulder (02/21/21) Adhesive capsulitis of left shoulder (02/21/21) Physical Therapy Treatment Note PT-OP-A Visit Information Start: 01/15/21 17:34 Freq: Status: Active Protocol: Document 02/21/21 16:45 DCW (Rec: 02/21/21 17:37 DCW [id number]) Out-Patient Physical Therapy Visit Information Visit Information Visit Type Treatment Note Visit Start Time 16:45 Visit Stop Time 17:30 Total Visit Minutes 45 Visit Number 3 Number of [employer] Visits 0 Evaluation Information Evaluation Date 01/15/21 PT-OP-B Current Condition Start: 01/15/21 17:34 Freq: Status: Active Protocol: Document 01/15/21 16:45 DCW (Rec: 01/15/21 17:50 DCW [id number]) Current Condition History of Current Condition Onset Date Multi-year history Current Complaints Bilateral arm numbness/ tingling, limited bilateral shoulder ROM History of Current Condition Pt is a 55 year old male presenting with a multi-year history of bilateral shoulder pain and stiffness. Pt reports he has always had very poor ROM when lifting his arms out to the side, but it has worsened over the last few years. Pt additionally is frequently woken up at night by tingling and numbness in his hands and arms. Pt reports putting on his jacket is troublesome. When lifting his arms into abduction, pt notes it feels like the muscles just bind up. Prior Treatments and Tests Shoulder x-ray: IMPRESSION: Shallow in dysmorphic appearance of the glenoid. Consider shoulder CT for more comprehensive evaluation. Per : Esau Brito M.D. on 2020 PT-OP-C Subjective Start: 01/15/21 17:34 Freq: Status: Active Protocol: Document 02/21/21 16:45 DCW (Rec: 02/21/21 17:36 DCW [id number]) OP-PT Subjective Patient Comments Patient Comments Pt reports that last week he was doing better, didn't go to sleep for a week following his last visit, but has been hurting more the last few days . Does note he is going to need to cancel remaining visits, he will be starting daily radiation treatment for the next two months. PT-OP-E Functional Tests Start: 01/15/21 17:34 Freq: Status: Active Protocol: Document 01/15/21 16:45 DCW (Rec: 01/16/21 13:58 DCW [id number]) Functional Tests Apley's Scratch Test Action 2- Left T3 Action 2- Right T3 Action 3- Left L2 Action 3- Right L2 PT-OP-F Manual Assessment Start: 01/15/21 17:34 Freq: Status: Active Protocol: Document 01/15/21 16:45 DCW (Rec: 01/16/21 13:58 DCW [id number]) Manual Assessments Soft Tissue Assessment Soft Tissue Mobility Assessment Moderate tone and tenderness to palpation 3/4: wincing and withdraw along bilateral upper trap, bilateral scalenes Moderate tone and tenderness to palpation 2/4: pain with wincing bilateral supraspinatus PT-OP-K Range of Motion Start: 01/15/21 17:34 Freq: Status: Active Protocol: Document 01/15/21 16:45 DCW (Rec: 01/16/21 13:58 DCW [id number]) Shoulder Goniometric Range of Motion Shoulder Right Passive Flexion 170 Abduction 170 Right Active Testing Position Sitting Flexion 158 Abduction 92 Left Passive Shoulder ROM WFL Yes Testing Position Supine Flexion 170 Abduction 170 Left Active Testing Position Sitting Flexion 160 Abduction 96 PT-OP-L Special Tests Start: 01/15/21 17:34 Freq: Status: Active Protocol: Document 01/15/21 16:45 DCW (Rec: 01/16/21 13:58 DCW [id number]) Special Tests Shoulder Special Tests Painful Arc Test Results Negative Bilaterally Speed's Biceps Test Results Negative Bilaterally Passive ER Rotator Cuff Test Results Negative Bilaterally Lift-Off Rotator Cuff Test Results Negative Bilaterally Leonard Vamsi Impingement Test Results Negative Bilaterally Empty Can Test Results Negative Bilaterally Belly Press Test Results Negative Bilaterally Apprehension Test Test Results Negative Bilaterally PT-OP-Q Treatments Start: 01/15/21 17:34 Freq: Status: Active Protocol: Document 02/21/21 16:45 DCW (Rec: 02/21/21 17:36 DCW [id number]) Cardio Equipment Upper Body Ergometer (UBE) Duration (Minutes) 5 RPM 60 Seat Position 13 Height 3.5 Therapeutic Exercises Sitting Exercises 3 Sitting Exercise Name Posterior Scalene stretch Side bilateral 2 Sitting Exercise Name Anterior Scalene stretch Side bilateral 1 Sitting Exercise Name Upper trap stretch Side bilateral Manual Therapy Treatment Soft Tissue Mobilization 2 Body Location R<L Scalenes 1 Body Location R<L Upper Trap Manual Traction Cervical Details Cervical traction Body Position Supine PT-OP-T Assessment and Plan Start: 01/15/21 17:34 Freq: Status: Active Protocol: Document 02/21/21 16:45 DCW (Rec: 02/21/21 17:36 DCW [id number]) Physical Therapy Assessment Impairments Impairments Functional Activities, Functional Mobility,Pain,ROM, Soft Tissue Mobility,Strength, Tone Goals Three Impairment Shoulder pain when donning/ doffing jacket [employer] Operator Goal (LTG) Pt to exhibit improvement in bilateral shoulder IR to reach at least T10 to enable him to don/doff jacket without increased pain. LTG Duration 03/13/21 Two Impairment Pt wakes up nightly around 3 am due to tingling in his arms Long-Term Goal (LTG) Pt to report sleeping through the night at least 4 nights a week without waking due to arm and hand tingling. LTG Duration 03/13/21 One Impairment Pt does not have an appropriate home exercise program Short Term Goal (STG) Pt to be independent and compliant with an appropriate HEP STG Duration 02/13/21 Assessment Summary Assessment Pt feels like he got some improvement from his last PT session, unfortunately will be discharging after today due to starting radiation treatment for the next two months. Physical Therapy Plan Frequency and Duration Frequency of Treatment 1x/Week Duration of Treatment 8 weeks Plan of Care Start Date 01/16/21 Plan of Care End Date 03/13/21 Therapeutic Interventions Therapeutic Interventions Home Exercise Program,Joint Mobilizations,Manual Therapy, Patient/Caregiver Education, Self-Care/Home Management,Soft Tissue Mobilization, Therapeutic Activities, Therapeutic Exercises Modalities Cold Pack/Ice Massage,Electric Stimulation,Hot Packs, Traction- Mechanical, Ultrasound Discharge Physical Therapy Discharge Reasons Change in Medical Status Next Visit Focus/Plan Next Note Type Discharge Summary
== END 2021-02-22 08:50 | disposition home or self-care (01) ==
LOC: PHYS 16:45
PROVIDERS: Family Provider Family Medicine; PCP Family Medicine; Referring Provider Family Medicine; Visit Provider Family Medicine
DX: M75.02 Adhesive capsulitis of left shoulder (principal); M75.01 Adhesive capsulitis of right shoulder; G54.0 Brachial plexus disorders; M25.512 Pain in left shoulder; M25.511 Pain in right shoulder
CPT/HCPCS: 97110; 97140; 97161

== ENCOUNTER → 2021-05-03 11:07 | Outpatient (CLI) | payer OTHER, SELFPAY | PROVIDERS: PCP Family Medicine; Referring Provider Family Medicine; Visit Provider Family Medicine | DX: M54.12 Radiculopathy, cervical region (principal) | CPT/HCPCS: 95886; 95909 ==

== ENCOUNTER → 2021-07-05 13:26 | Outpatient (CLI) | payer OTHER, SELFPAY ==
[2021-07-05 14:15] LABS: COVID19 -Nasal RAPID Negative (Negative)
== END ==
PROVIDERS: PCP Family Medicine; Referring Provider Internal Medicine; Visit Provider Internal Medicine
DX: Z20.822 Contact with and (suspected) exposure to COVID-19 (principal)
CPT/HCPCS: 87635; C9803

== ENCOUNTER → 2021-07-06 10:52 | Outpatient (CLI) | payer OTHER, SELFPAY ==
--- NOTE | 2021-07-13 08:32 | PM.PFT.1 ---
Pulmonary Function Test Referral & Results Date Patient Seen: 07/06/21 Requesting provider: Hannah Baker Indication: COPD Results: The spirometry demonstrates an FVC of 3.11 L which is 63% of predicted. The FEV1 was measured at 1.09 L which is 20% of predicted. The FEV1/FVC ratio was 35 which is 45% of predicted. Following the administration of bronchodilator there was a 33% improvement in FEV1 and a 90% improvement in FEF 25-75% Lung volumes show an SVC of 3.30 L which is 68% of predicted. The diffusing capacity was measured at 22.37 which is 69% of predicted. No hemoglobin value was provided, so no correction for potential anemia could be made, if appropriate. The maximum voluntary ventilation was reduced severely Interpretation: This study demonstrates moderately severe obstructive lung disease based on significant reduction FEV1 and FEV1/FVC ratio. There is evidence of significant benefit following bronchodilator as above There is also [id number] reduction in lung volumes suggesting mild to moderate restrictive lung disease There is also moderate reduction diffusing capacity suggesting disease at the capillary alveolar level Altogether this is consistent with a diagnosis of COPD
== END ==
PROVIDERS: PCP Family Medicine; Referring Provider Family Medicine; Visit Provider Family Medicine
DX: J44.9 Chronic obstructive pulmonary disease, unspecified (principal); J30.9 Allergic rhinitis, unspecified; Z87.891 Personal history of nicotine dependence
CPT/HCPCS: 94060; 94726; 94729

== ENCOUNTER → 2021-12-05 15:32 | Outpatient (CLI) | payer OTHER, SELFPAY ==
--- NOTE | 2021-12-05 | DI.RAD.S_ITS ---
PROCEDURE: XR CHEST 2V INDICATIONS: SHORTNESS OF BREATH, LOCALIZED EDEMA TECHNIQUE: 2 views of the chest were acquired. COMPARISON: [facility], CR, XR CHEST 2V, 07/13/2019, 19:26. FINDINGS: Surgical changes and devices: None. Lungs and pleura: Lungs are clear. No pleural effusions or pneumothorax. Mediastinum: Mediastinal contours are normal. Heart size is normal. Bones and chest wall: No suspicious bony abnormalities. Soft tissues appear unremarkable. IMPRESSION: No acute cardiopulmonary disease process. Dictated by: Diana Keane MD, PhD on 12/05/2021 at 17:05 Approved by: Diana Keane MD, PhD on 12/05/2021 at 17:06
== END ==
PROVIDERS: PCP Family Medicine; Referring Provider Family Medicine; Visit Provider Family Medicine
DX: R60.0 Localized edema (principal); R06.02 Shortness of breath
CPT/HCPCS: 71046

== ENCOUNTER → 2022-01-08 15:57 | Outpatient (CLI) | payer OTHER, SELFPAY ==
--- NOTE | 2022-01-08 15:59 | DI.ECHO.S_ITS ---
[facility] +---------+ : : [address] [address] : : : : [id number] : : : : Phone: [phone]---------+ Echocardiogram Report + + :Name: DUSTIN SALMON Study Date: 01/08/2022 Height: 70 in : :[facility] ReadingLocation: Weight: 245 lb : : Gender: Male BSA: 2.3 m2 : :: 1965 Age: 56 yrs BP: 164/98 mmHg: :Reason For Study: EDEMA, SHORTNESS OF BREATH : :Ordering Physician: SWEETIE, : :JESUS Performed By: Bernie Sanchez : :Referring: JESUS PITT : + + Interpretation Summary The left ventricle is normal in size and wall thickness. The ejection fraction is estimated to be 60-65%. Diastolic parameters suggest probable normal left ventricular diastolic function and normal filling pressures. The right ventricle is normal in size and function. Pulmonary artery pressures cannot be estimated because of the lack of a measurable TR jet velocity but the IVC suggests a CVP of around 8 mmHg. No significant valvular disease. Procedure: A two-dimensional transthoracic echocardiogram with color flow and Doppler was performed. Most of the acoustic windows were suboptimal, but the best imaging was obtained from the apical window. There is no prior echocardiogram noted for this patient. The patient was in sinus rhythm with heart rates between 75-95 bpm during the exam. Left Ventricle: The left ventricle is normal in size and wall thickness. The ejection fraction is estimated to be 60-65%. Left ventricular wall motion is normal. Diastolic parameters suggest probable normal left ventricular diastolic function and normal filling pressures. Right Ventricle: The right ventricle is normal in size and function. Atria: The left atrial size is normal. Right atrial size is normal. There is no Doppler evidence for an interatrial shunt. Mitral Valve: The mitral valve is normal in structure and function. There is trace mitral regurgitation. Aortic Valve: The aortic valve opens well. There is no aortic valve stenosis. No aortic regurgitation is present. Tricuspid Valve: The tricuspid valve is normal in structure and function. There is trace tricuspid regurgitation. Pulmonary artery pressures cannot be estimated because of the lack of a measurable TR jet velocity but the IVC suggests a CVP of around 8 mmHg. Pulmonic Valve: The pulmonic valve is not well visualized. There is no pulmonic valvular regurgitation. Great Vessels: The aortic root is normal size. The dimensions of the ascending aorta are normal. The IVC is dilated (diameter is greater than 2.1 cm) yet it collapses greater than 50% with a sniff. This suggests a right atrial pressure of 8 mm Hg. Pericardium/ Pleura There is no pericardial effusion. There is no pleural effusion. MMode/2D Measurements & Calculations LVIDd: 4.9 cm LVOT diam: 2.2 cm LVIDs: 3.0 cm Ao root diam: 3.7 cm FS: 38.3 % asc Aorta Diam: 3.3 cm IVSd: 0.94 cm Ao Arch Diam (Prox Trans): 3.2 cm LVPWd: 1.1 cm LV lauren. diameter/BSA (cm/m^2): 2.2 LV sys. diameter/BSA (cm/m^2): 1.3 LA A2 area: 18.5 cm2 RA long axis: 4.8 cm LA A4 area: 17.3 cm2 RA area: 12.6 cm2 LA length (vol): 5.0 cm RA vol: 28.5 ml LA vol: 54.2 ml RA : 12.5 ml/m2 LA vol index: 23.8 ml/m2 IVC diam: 2.3 cm RVD1 (basal): 3.8 cm TAPSE: 2.6 cm Doppler Measurements & Calculations Ao V2 max: 166.5 cm/sec LVOT Max Jose: 132.0 cm/sec Ao V2 mean: 112.1 cm/sec LV V1 max P.0 mmHg Ao max P.1 mmHg LV V1 VTI: 23.2 cm Ao mean P.7 mmHg NENITA(I,D): 2.8 cm2 Ao V2 VTI: 30.1 cm NENITA(V,D): 2.9 cm2 sev ratio: 0.77 NENITA indexed to BSA (cm^2/m^2): 1.2 MV E max jose: 79.0 cm/sec PA V2 max: 91.1 cm/sec MV A max jose: 65.7 cm/sec PA V2 mean: 63.6 cm/sec MV E/A: 1.2 PA mean P.8 mmHg Med Peak E' Jose: 7.7 cm/sec PA pr(Accel): 37.9 mmHg E/E' med: 10.3 Lat Peak E' Jose: 11.2 cm/sec E/E' lat: 7.1 E/e' average: 8.7 MV dec time: 0.19 sec [facility] 84.7 ml Reading Physician:KELLY
== END ==
PROVIDERS: PCP Family Medicine; Referring Provider Family Medicine; Visit Provider Family Medicine
DX: R60.0 Localized edema (principal); R06.02 Shortness of breath
CPT/HCPCS: 93306

== ENCOUNTER → 2022-02-27 07:02 | Outpatient (CLI) | payer OTHER, SELFPAY ==
[2022-02-27 09:24] LABS: Prostate Specific Antigen < 0.064 ng/mL (0.10-4.00)
[2022-03-06 07:37] LABS: Testosterone % Fr + Wkly bound 27.3 % (9.0-46.0); Testosterone Fr+Wkly bound 52.7 ng/dL (40.0-250.0); Testosterone, Total 193.2 ng/dL (264.0-916.0)
== END ==
PROVIDERS: PCP Family Medicine; Referring Provider Specialist; Visit Provider Specialist
DX: R97.20 Elevated prostate specific antigen [PSA] (principal); C61 Malignant neoplasm of prostate; N52.31 Erectile dysfunction following radical prostatectomy
CPT/HCPCS: 36415; 84153; 84403

== ENCOUNTER 2022-07-20 02:32 | Emergency (ER) | payer OTHER, SELFPAY ==
[2022-07-20 02:37] VITALS: PULSE 115; O2SAT 96
[2022-07-20 02:38] VITALS: BP 143/72; PULSE 116; O2SAT 95
--- NOTE | 2022-07-20 02:38 | ED.GENADULT ---
HPI - General Adult General Chief complaint: Shortness of Breath/Dyspnea Stated complaint: sob Time Seen by Provider: 07/20/22 02:38 Source: patient Mode of arrival: Ambulatory Limitations: no limitations History of Present Illness HPI narrative: Patient is a 57-year-old male. Has a history of COPD. Does have an albuterol inhaler. States he woke from sleep this evening with shortness of breath. No chest pain but does feel chest tightness. Is coughing. No fevers. States that he has been feeling well all week and did take some home COVID test without any improvement. Did try his albuterol at home without any improvement as well. He is having some sinus congestion and a scratchy throat. Related Data Home Medications Medication Instructions Recorded Confirmed sildenafil PO 12/22/18 04/09/22 amlodipine 10 mg tablet 10 mg PO DAILY 03/17/19 04/09/22 losartan 50 mg tablet 50 mg PO DAILY 03/17/19 04/09/22 tadalafil 20 mg tablet (Cialis) 20 mg PO DAILY PRN Sexual Activity 03/17/19 04/09/22 ciclopirox topical 03/06/22 04/09/22 furosemide [Lasix] PO 03/06/22 04/09/22 tiotropium bromide [Spiriva with inhalation 03/06/22 04/09/22 HandiHaler] triazolam PO 03/06/22 04/09/22 Previous Rx's Medication Instructions Recorded albuterol sulfate 90 mcg/actuation 2 puff inhalation Q4-6H PRN 12/22/18 aerosol inhaler shortness of breath or wheezing #8.5 grams Allergies Allergy/AdvReac Type Severity Reaction Status Date / Time No Known Drug Allergies Allergy Verified 04/09/22 12:55 Review of Systems Constitutional Constitutional: Reports system reviewed and no additional complaints, except as documented Cardiovascular Cardiovascular: Reports system reviewed and no additional complaints, except as documented Respiratory Respiratory: Reports system reviewed and no additional complaints, except as documented Gastrointestinal Gastrointestinal: Reports system reviewed and no additional complaints, except as documented Musculoskeletal Musculoskeletal: Reports system reviewed and no additional complaints, except as documented Integumentary/Breasts Skin/Breast: Reports system reviewed and no additional complaints, except as documented Neurologic Neurologic: Reports system reviewed and no additional complaints, except as documented Hematologic/Lymphatic On Anticoagulants: No Patient History Medical History COPD (chronic obstructive pulmonary disease) Erectile dysfunction after radical prostatectomy Excessive daytime sleepiness Hypertension Insomnia Kidney stone Nicotine dependence, unspecified, uncomplicated Obstructive sleep apnea Prostate cancer Prostate cancer Surgical History H/O prostatectomy No pertinent past surgical history Family History Mother Cancer Other Prostate cancer Social History marital status: number of children: 2 Smoking Status: Current every day smoker Tobacco: How many years used: 10 alcohol intake: current substance use type: does not use Smoking Status: Current every day smoker (1/2 ppd) alcohol intake frequency: 0-2 drinks per day Substance Use Type: does not use Exam Initial Vital Signs Initial Vital Signs: Vital Signs Temperature 97.4 F L 07/20/22 02:43 Pulse Rate 103 H 07/20/22 02:43 Respiratory Rate 28 H 07/20/22 02:43 Blood Pressure 143/72 H 07/20/22 02:43 Pulse Oximetry 99 07/20/22 02:43 Oxygen Delivery Method 07/20/22 02:43 Const General: cooperative, well groomed and No ill appearing HENMT Head: normal to inspection and normocephalic Resp Effort & Inspection: labored, respiratory distress and tachypneic Auscultation: diminished lung sounds and wheezes Cardio Rate: tachycardic Rhythm: regular rhythm Skin General: no rashes or lesions noted Neuro General: patient alert, patient awake and moves all extremities Extrem General: normal to inspection and capillary refill normal Psych Appearance: grossly normal and well kempt Course Orders Ordered: ED Orders 07/20/22 02:40 XR chest 1V Stat Basic Metabolic Panel Stat COVID19 -Nasal RAPID/Pre-Proc Stat Complete Blood Count AUTO DIFF Stat Troponin & CK Cardiac Panel Stat 07/20/22 03:03 EKG-12 Lead Stat Discontinued Medications Albuterol/Ipratropium (Albuterol/Ipratropium 3 Ml Ampul) 3 ml INH NOW ONE Stop: 07/20/22 02:39 Last Admin: 07/20/22 02:52 Dose: 3 ml Documented By: CTS Albuterol/Ipratropium (Albuterol/Ipratropium 3 Ml Ampul) 3 ml INH NOW ONE Stop: 07/20/22 03:25 Last Admin: 07/20/22 03:36 Dose: 3 ml Documented By: KUSUM Methylprednisolone (Methylprednisolone 125 Mg/2 Ml Vial) 125 mg IV NOW ONE Stop: 07/20/22 02:39 Last Admin: 07/20/22 02:53 Dose: 125 mg Documented By: COREY Vital Signs Vital signs: Vital Signs - 8 hr 07/20/22 02:43 07/20/22 03:36 Temperature 97.4 F L Pulse Rate 103 H 103 H Respiratory Rate 28 H 28 H Blood Pressure 143/72 H Pulse Oximetry 99 99 Oxygen Delivery Method Room Air Room Air Medical Decision Making Lab Data Lab results reviewed: Yes I reviewed the patient's lab results. Result diagrams: 07/20/22 02:40 07/20/22 02:40 Labs: Lab Results 07/20/22 07/20/22 07/20/22 Range/Units 02:40 02:40 02:40 WBC 7.5 (4.5-11.0) X10^3/uL RBC 4.24 L (4.5-5.9) X10^6/uL Hgb 14.0 (13.5-17.5) g/dL Hct 40.7 L (41-53) % MCV 95.9 (80-100) fL MCH 32.9 (26-34) PG MCHC 34.3 (30-36) % RDW 13.5 (11.6-14.8) % Plt Count 158 (150-400) X10^3/uL Neut % (Auto) 54.6 (50-75) % Lymph % (Auto) 31.8 (25-40) % [place] % (Auto) 7.1 (3-14) % Eos % (Auto) 5.5 H (2-4) % Baso % (Auto) 1.0 (0-2) % Neut # (Auto) 4100 (7440-7759) /uL Lymph # (Auto) 2400 (1191-9347) /uL [place] # (Auto) 500 (0-900) /uL Eos # (Auto) 400 (0-450) /uL Baso # (Auto) 100 (0-100) /uL Sodium 141 (137-145) mmol/L Potassium 4.0 (3.4-5.1) mmol/L Chloride 107 (98-107) mmol/L Carbon Dioxide 22 (22-32) mmol/L BUN 19 (9-20) mg/dL Creatinine 0.86 (0.66-1.25) mg/dL Estimated GFR > 60 (>60) mL/min BUN/Creatinine Ratio 22.1 H (6-22) Glucose 100 (70-100) mg/dL Calcium 8.5 (8.4-10.2) mg/dL Total Creatine Kinase 103 (55-170) U/L CK-MB (CK-2) 1.09 (<2.37) ng/mL CK-MB (CK-2) Rel Index 1.1 L (1.5-5.0) % Troponin I < 0.012 (0.01-0.034) ng/mL SARS-CoV-2 (PCR) Negative (Negative) Imaging Data Chest x-ray: Radiologist's Impression: No acute findings ECG Data Attestation: I personally reviewed and interpreted this ECG as follows: Interpretation: Sinus rhythm Ventricular rate 93 Normal axis Normal QRS Normal QTC No ST T wave changes MDM Narrative Medical decision making narrative: Chest x-ray is unremarkable. Afebrile. After 2 DuoNebs lungs were clear and patient states that he feels back to normal again. No indication for antibiotics as he is not had a change in sputum production or amount. Labs are unremarkable. Low suspicion for ACS. EKG is unremarkable. Will discharge patient home to continue all of his medications. He was given return precautions. He expressed understanding and agreement. Discharge Plan Departure Patient Disposition: Home Clinical Impression: COPD exacerbation Instructions: Chronic Obstructive Pulmonary Disease Activity Restrictions/Additional Instructions: I do recommend that you continue to take all of your medications as directed. Contact your primary provider for a follow-up. Return to the emergency department for any new or worsening symptoms. Prescriptions: No Action sildenafil PO albuterol sulfate 90 mcg/actuation HFA aerosol inhaler 2 puff INHALATION Q4-6H PRN (Reason: shortness of breath or wheezing) Qty: 8.5 0RF losartan 50 mg Tablet 50 mg PO DAILY amlodipine 10 mg Tablet 10 mg PO DAILY tadalafil [Cialis] 20 mg Tablet 20 mg PO DAILY PRN (Reason: Sexual Activity) furosemide [Lasix] PO tiotropium bromide [Spiriva with HandiHaler] inhalation ciclopirox topical triazolam PO Referrals: Hannah Baker MD [Primary Care Provider] -
--- NOTE | 2022-07-20 02:40 | DI.RAD.S_ITS ---
PROCEDURE: XR CHEST 1V INDICATIONS: SOB TECHNIQUE: One view of the chest was acquired. COMPARISON: [facility], CR, XR CHEST 2V, 12/05/2021, 16:39. FINDINGS: Surgical changes and devices: None. Lungs and pleura: Lungs are clear. No pleural effusions or pneumothorax. Mediastinum: Mediastinal contours appear normal. Heart size is normal. Bones and chest wall: No suspicious bony lesions. Overlying soft tissues appear unremarkable. IMPRESSION: No acute cardiopulmonary findings Approved by: Rosales Taylor M.D. on 07/20/2022 at 6:22
[2022-07-20 02:43] VITALS: BP 143/72; PULSE 103; RESP 28; TEMP 36.3; O2SAT 99; BMI 35.9
[2022-07-20] MEDS: ALBUTEROL/IPRATROPIUM 3 ML AMPUL INH ×2 (02:52→03:36)
[2022-07-20] MEDS: methylPREDNISolone 125 MG/2 ML VIAL IV (02:53)
[2022-07-20 02:56] LABS: Add Manual Diff / Slide Review NO; Basophils Absolute Auto 100 /uL (0-100); Eosinophils Absolute Auto 400 /uL (0-450); Eosinophils Percent Auto 5.5 % (2-4); Hematocrit 40.7 % (41-53); Lymphocytes Absolute Auto 2400 /uL (1100-4500); Lymphocytes Percent Auto 31.8 % (25-40); Mean Corpuscular HGB Conc 34.3 % (30-36); Mean Corpuscular Hemoglobin 32.9 PG (26-34); Mean Corpuscular Volume 95.9 fL (80-100); Monocytes Absolute Auto 500 /uL (0-900); Monocytes Percent Auto 7.1 % (3-14); Neutrophils Absolute Auto 4100 /uL (1500-7000); Neutrophils Percent Auto 54.6 % (50-75); Platelet Count 158 X10^3/uL (150-400); Red Blood Cell Count 4.24 X10^6/uL (4.5-5.9); Red Cell Distribution Width 13.5 % (11.6-14.8); White Blood Cell Count 7.5 X10^3/uL (4.5-11.0)
[2022-07-20 03:00] VITALS: PULSE 92; O2SAT 97
[2022-07-20 03:00] LABS: BUN Creatinine Ratio 22.1 (6-22); Blood Urea Nitrogen 19 mg/dL (9-20); Calcium 8.5 mg/dL (8.4-10.2); Carbon Dioxide 22 mmol/L (22-32); Chloride 107 mmol/L (98-107); Creatine Kinase 103 U/L (55-170); Estimated Glomerular Filt Rate > 60 mL/min (>60); Glucose 100 mg/dL (70-100); HEMOLYSIS < 15 (0-50); Sodium 141 mmol/L (137-145)
[2022-07-20 03:03] LABS: COVID19 -Nasal RAPID Negative (Negative)
[2022-07-20 03:12] LABS: Troponin I < 0.012 ng/mL (0.01-0.034)
[2022-07-20 03:15] LABS: CKMB % Relative Index 1.1 % (1.5-5.0); Creatine Kinase MB 1.09 ng/mL (<2.37)
[2022-07-20 03:30] VITALS: PULSE 88; O2SAT 93
[2022-07-20 03:36] VITALS: PULSE 103; RESP 28; O2SAT 99
== END 2022-07-20 03:58 | disposition home or self-care (01) ==
PROVIDERS: Emergency Provider Emergency Medicine; PCP Family Medicine
DX: J44.1 Chronic obstructive pulmonary disease with (acute) exacerbation (principal); R07.89 Other chest pain; Z20.822 Contact with and (suspected) exposure to COVID-19
CPT/HCPCS: 36415; 71045; 80048; 82550; 82553; 84484; 85025; 87635; 93005; 93010; 94640; 96374; 99284; C9803; J2930

== ENCOUNTER → 2022-09-05 13:05 | Outpatient (CLI) | payer OTHER, SELFPAY ==
[2022-09-05 14:29] LABS: Prostate Specific Antigen < 0.064 ng/mL (0.10-4.00)
== END ==
PROVIDERS: PCP Family Medicine; Referring Provider Specialist; Visit Provider Specialist
DX: C61 Malignant neoplasm of prostate (principal)
CPT/HCPCS: 36415; 84153

== ENCOUNTER → 2023-01-29 13:06 | Outpatient (ROUT) | payer OTHER, SELFPAY ==
[2023-01-29 13:47] LABS: Influenza A - CEPHEID Flu A NEGATIVE (NEGATIVE); Influenza B - CEPHEID Flu B NEGATIVE (NEGATIVE); Respiratory Syncytial Virus Negative (Negative)
[2023-01-29 13:50] LABS: COVID-19 CEPHEID 4-PLEX PCR Negative (Negative)
== END ==
PROVIDERS: PCP Family Medicine; Visit Provider Family Medicine
DX: R05.1 Acute cough (principal)
CPT/HCPCS: 0241U

== ENCOUNTER → 2023-03-20 08:18 | Outpatient (CLI) | payer OTHER, SELFPAY ==
[2023-03-20 09:39] LABS: Add Manual Diff / Slide Review NO; Basophils Absolute Auto 100 /uL (0-100); Basophils Percent Auto 0.7 % (0-2); Eosinophils Absolute Auto 200 /uL (0-450); Eosinophils Percent Auto 2.8 % (2-4); Hematocrit 43.7 % (41-53); Lymphocytes Absolute Auto 1500 /uL (1100-4500); Mean Corpuscular HGB Conc 34.3 % (30-36); Mean Corpuscular Hemoglobin 32.4 PG (26-34); Mean Corpuscular Volume 94.3 fL (80-100); Monocytes Absolute Auto 500 /uL (0-900); Neutrophils Absolute Auto 5200 /uL (1500-7000); Neutrophils Percent Auto 69.5 % (50-75); Platelet Count 155 X10^3/uL (150-400); Red Blood Cell Count 4.64 X10^6/uL (4.5-5.9); Red Cell Distribution Width 13.3 % (11.6-14.8); White Blood Cell Count 7.5 X10^3/uL (4.5-11.0)
[2023-03-20 09:44] LABS: BUN Creatinine Ratio 28.4 (6-22); Blood Urea Nitrogen 21 mg/dL (9-20); Calcium 8.9 mg/dL (8.4-10.2); Carbon Dioxide 28 mmol/L (22-32); Chloride 102 mmol/L (98-107); Cholesterol 256 mg/dL (140-199); Estimated Glomerular Filt Rate > 60 mL/min (>60); Glucose 101 mg/dL (70-100); HDL Cholesterol 70 mg/dL (40-60); HEMOLYSIS 19 (0-50); LDL Cholesterol Calculated 156 mg/dL (<100); Potassium 4.5 mmol/L (3.4-5.1); Sodium 138 mmol/L (137-145); Triglycerides 148 mg/dL (35-150)
[2023-03-20 10:20] LABS: Prostate Specific Antigen < 0.064 ng/mL (0.10-4.00); Thyroid Stimulating Hormone 1.22 uIU/mL (0.47-4.68)
== END ==
PROVIDERS: PCP Family Medicine; Referring Provider Specialist; Visit Provider Specialist
DX: I10 Essential (primary) hypertension (principal); Z00.00 Encounter for general adult medical examination without abnormal findings; C61 Malignant neoplasm of prostate
CPT/HCPCS: 36415; 80048; 80061; 84153; 84443; 85025

== ENCOUNTER → 2023-03-25 13:54 | Outpatient (ROUT) | payer OTHER, SELFPAY ==
[2023-03-25 14:57] LABS: Influenza A - CEPHEID Flu A NEGATIVE (NEGATIVE); Influenza B - CEPHEID Flu B NEGATIVE (NEGATIVE); Respiratory Syncytial Virus Negative (Negative)
[2023-03-25 15:13] LABS: COVID-19 CEPHEID 4-PLEX PCR Negative (Negative)
== END ==
PROVIDERS: PCP Family Medicine; Visit Provider Internal Medicine
DX: R05.9 Cough, unspecified (principal); R09.89 Other specified symptoms and signs involving the circulatory and respiratory systems
CPT/HCPCS: 0241U

== ENCOUNTER → 2023-04-18 14:53 | Outpatient (CLI) | payer OTHER, SELFPAY ==
--- NOTE | 2023-04-23 08:42 | PM.PFT.1 ---
Pulmonary Function Test Referral & Results Date Patient Seen: 04/18/23 Results: The spirometry demonstrates an FVC of 3.80 L which is 77% of predicted. The FEV1 was measured at 1.48 L which is 39% of predicted. The FEV1/FVC ratio was 39 which is 51% of predicted. Following the administration of bronchodilator there was a 19% improvement in FEV1 and a 42% improvement in FEF 25-75%. Lung volumes show an SVC of 4.10 L which is 85% of predicted. The diffusing capacity was measured at 23.37 which is 72% of predicted. No hemoglobin value was provided, so no correction for potential anemia could be made, if appropriate. The maximum voluntary ventilation was reduced Interpretation: This study demonstrates moderate obstructive lung disease based on reduction in both FEV1 and FEV1/FVC ratio. There is evidence of significant benefit following bronchodilator as above There is a mild reduction in lung volumes suggesting the presence of mild restrictive lung disease There is also mild reduction diffusing capacity suggesting the presence of disease at the capillary alveolar level Compared to PFTs performed in June 2021, current study shows improvement in FEV1 was previously at 1.09 L now 1.48 L. There is also notable improvement in lung volumes compared to previous study. Diffusing capacity is essentially unchanged Clinical correlation suggested
== END ==
PROVIDERS: PCP Family Medicine; Referring Provider Family Medicine; Visit Provider Family Medicine
DX: J44.9 Chronic obstructive pulmonary disease, unspecified (principal); Z87.891 Personal history of nicotine dependence
CPT/HCPCS: 94060; 94726; 94729

== ENCOUNTER → 2023-04-26 11:10 | Outpatient (CLI) | payer OTHER, SELFPAY ==
--- NOTE | 2023-04-26 11:12 | DI.RAD.S_ITS ---
PROCEDURE: XR CERVICAL SPINE 4V OR 5V INDICATIONS: NECK PAIN TECHNIQUE: 5 views of the cervical spine acquired. COMPARISON: [facility], CR, XR CERVICAL SPINE 2V OR 3V, 01/16/2021, 11:11. FINDINGS: Bones: No fractures or dislocations to the T1 level. Oblique images demonstrate multilevel foraminal stenosis on the left at C4-5 and C5-6 and on the right at C4-5 and C5-6. Degenerative disc disease at C5-6 with disc space narrowing and anterior osteophytes at these levels. Soft tissues: No prevertebral soft tissue swelling. IMPRESSION: Degenerative disc disease with foraminal narrowing at C4-5 and C5-6. Dictated by: London Musa M.D. on 04/26/2023 at 12:44 Approved by: London Musa M.D. on 04/26/2023 at 12:46
== END ==
PROVIDERS: PCP Family Medicine; Referring Provider Physical Medicine & Rehabilitation; Visit Provider Physical Medicine & Rehabilitation
DX: M54.2 Cervicalgia (principal)
CPT/HCPCS: 72050

== ENCOUNTER → 2023-07-05 09:46 | Outpatient (CLI) | payer OTHER, SELFPAY ==
--- NOTE | 2023-07-05 09:47 | DI.MRI.S_ITS ---
PROCEDURE: MR SHOULDER LT WO CON INDICATIONS: Bilateral glenohumeral joint DJD TECHNIQUE: Noncontrast oblique coronal T2 fast spin echo with fat saturation, oblique sagittal T1 spin echo and T2 fast spin echo with fat saturation, axial T1 spin echo and T2 fast spin echo with fat saturation through the shoulder. COMPARISON: CR, XR SHOULDER LT MIN 2V, 01/06/2021, 10:15. FINDINGS: Image quality: Excellent. Rotator cuff: There is wjxu-ja-ltvaycld supraspinatus, infraspinatus and subscapularis tendinosis. Low-grade interstitial tear is present in the supraspinatus and infraspinatus tendons. No tendon retraction or rotator cuff muscle atrophy. Bones and bursae: No bone marrow contusions or fractures. Mild acromioclavicular and glenohumeral joint degeneration. The acromion demonstrates conventional anatomy, without an os acromiale. There is small subcoracoid bursal fluid consistent with bursitis. Capsule and soft tissues: There is tear of the posterior labrum with several paralabral cysts. Degenerative superior labral fraying is present. The long head of the biceps tendon demonstrates normal location and morphology. The rotator interval appears normal, without fibrosis. The coracohumeral ligament is normal in thickness. IMPRESSION: 1. Posterior labral tear. 2. Zamc-ig-umjpdyua rotator cuff tendinosis. There is low-grade partial-thickness tear of the supraspinatus and infraspinatus tendons. No tendon retraction or muscle atrophy. 3. Mild subcoracoid bursitis. 4. 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 Dictated by: Naseem Connors M.D. on 07/07/2023 at 10:01 Approved by: Naseem Connors M.D. on 07/07/2023 at 11:03
== END ==
PROVIDERS: PCP Family Medicine; Referring Provider Physical Medicine & Rehabilitation; Visit Provider Physical Medicine & Rehabilitation
DX: M19.012 Primary osteoarthritis, left shoulder (principal); M75.112 Incomplete rotator cuff tear or rupture of left shoulder, not specified as traumatic; M19.011 Primary osteoarthritis, right shoulder; M75.40 Impingement syndrome of unspecified shoulder; M75.52 Bursitis of left shoulder
CPT/HCPCS: 73221

== ENCOUNTER 2023-08-18 08:56 | Emergency (ER) | payer OTHER, SELFPAY ==
[2023-08-18] VITALS (11 sets, daily range): BP systolic 145–179; BP diastolic 78–99; PULSE 86–104; RESP 13–22; TEMP 36.6; O2SAT 93–99; BMI 35.9
--- NOTE | 2023-08-18 09:13 | DI.RAD.S_ITS ---
PROCEDURE: XR CHEST 1V INDICATIONS: dyspnea TECHNIQUE: One view of the chest was acquired. COMPARISON: [facility], CR, XR CHEST 1V, 07/20/2022, 2:41. FINDINGS: Surgical changes and devices: None. Lungs and pleura: Lungs are clear. No pleural effusions or pneumothorax. Mediastinum: Mediastinal contours appear normal. Heart size is normal. Bones and chest wall: No suspicious bony lesions. Overlying soft tissues appear unremarkable. IMPRESSION: No evidence acute pulmonary process. Dictated by: Jose Guzman M.D. on 08/18/2023 at 9:37 Approved by: Jose Guzman M.D. on 08/18/2023 at 9:37
--- NOTE | 2023-08-18 09:13 | DI.CT.S_ITS ---
PROCEDURE: CT HEAD/BRAIN WO CON INDICATIONS: AMS TECHNIQUE: Noncontrast 4.5 mm thick angled axial sections acquired from the foramen magnum to the vertex, with coronal and sagittal reformats. For radiation dose reduction, the following was used: automated exposure control, adjustment of mA and/or kV according to patient size. COMPARISON: None. FINDINGS: Image quality: Excellent. CSF spaces: Basal cisterns are patent. No extra-axial fluid collections. The ventricles are symmetric in size and shape. Brain: No intracranial bleeds or masses. There is cerebral volume loss for age, with resultant ventricular and sulcal prominence. There are very mild periventricular and deep white matter chronic small vessel ischemic changes. There is intracranial internal carotid artery atherosclerosis. Skull and face: Calvarium and visualized facial bones appear intact, without suspicious lesions. Sinuses: Visualized sinuses and mastoids are clear. IMPRESSION: No acute intracranial process Dictated by: Jose Guzman M.D. on 08/18/2023 at 9:37 Approved by: Jose Guzman M.D. on 08/18/2023 at 9:37
[2023-08-18 09:25] LABS: Add Manual Diff / Slide Review NO; Basophils Absolute Auto 100 /uL (0-100); Eosinophils Absolute Auto 200 /uL (0-450); Eosinophils Percent Auto 2.1 % (2-4); Hematocrit 42.2 % (41-53); Hemoglobin 14.7 g/dL (13.5-17.5); Lymphocytes Absolute Auto 2300 /uL (1100-4500); Lymphocytes Percent Auto 28.7 % (25-40); Mean Corpuscular HGB Conc 34.8 % (30-36); Mean Corpuscular Hemoglobin 32.5 PG (26-34); Mean Corpuscular Volume 93.2 fL (80-100); Monocytes Absolute Auto 500 /uL (0-900); Monocytes Percent Auto 6.5 % (3-14); Neutrophils Absolute Auto 4900 /uL (1500-7000); Neutrophils Percent Auto 61.7 % (50-75); Platelet Count 187 X10^3/uL (150-400); Red Blood Cell Count 4.53 X10^6/uL (4.5-5.9); Red Cell Distribution Width 12.7 % (11.6-14.8); White Blood Cell Count 7.9 X10^3/uL (4.5-11.0)
--- NOTE | 2023-08-18 09:25 | ED.GENADULT ---
HPI - General Adult General Chief complaint: Dizziness Stated complaint: dizzy, confused, sob Time Seen by Provider: 08/18/23 09:05 Source: patient Mode of arrival: Ambulatory History of Present Illness HPI narrative: 58-year-old male with history of COPD, hypertension, hyperlipidemia presents for a lightheaded/dizzy sensation since waking up this morning. He states that he normally sleeps all night long but was restless and when he woke up he felt ?out of it?. Also reported fuzzier vision than normal. Wears glasses at baseline. Drinks 1-1.5 bottles of wine nightly. Related Data Home Medications Medication Instructions Recorded Confirmed sildenafil PO 12/22/18 08/08/23 amlodipine 10 mg tablet 10 mg PO DAILY 03/17/19 08/08/23 tadalafil 20 mg tablet (Cialis) 20 mg PO DAILY PRN Sexual Activity 03/17/19 08/08/23 ciclopirox topical 03/06/22 08/08/23 furosemide [Lasix] PO 03/06/22 08/08/23 triazolam PO 03/06/22 08/08/23 albuterol sulfate 2.5 mg/3 mL 2.5 mg inhalation .PRN 04/28/23 08/08/23 (0.083 %) solution for nebulization fluticasone 250 mcg-salmeterol 50 1 inh inhalation .PRN 04/28/23 08/08/23 mcg/dose blistr powdr for inhalation (Advair Diskus) hydrochlorothiazide 25 mg tablet 25 mg PO DAILY 04/28/23 08/08/23 losartan 100 mg tablet 100 mg PO DAILY 04/28/23 08/08/23 tiotropium bromide 18 mcg capsule 1 cap inhalation DAILY 04/28/23 08/08/23 with inhalation device (Spiriva with HandiHaler) Previous Rx's Medication Instructions Recorded celecoxib 200 mg capsule (Celebrex) 200 mg PO DAILY #30 caps 08/04/23 budesonide 160 mcg-glycopyr 9 2 inh inhalation BID #10.7 grams 08/08/23 mcg-formot 4.8 mcg/actuation HFA inhaler (Breztri Aerosphere) montelukast 10 mg tablet 10 mg PO BEDTIME #30 tabs 08/08/23 (Singulair) Allergies Allergy/AdvReac Type Severity Reaction Status Date / Time No Known Drug Allergies Allergy Verified 08/08/23 16:02 Review of Systems Review of Systems Narrative: Negative except as noted above Patient History Medical History (Updated 08/18/23 @ 11:00 by Yelitza Brumfield MD) Cervical radiculopathy Shoulder impingement syndrome DJD of both shoulders CTS (carpal tunnel syndrome) Erectile dysfunction due to and not concurrent with radiation therapy History of malignant neoplasm of prostate Prostate cancer Prostate cancer Obstructive sleep apnea Insomnia Excessive daytime sleepiness Nicotine dependence, unspecified, uncomplicated COPD (chronic obstructive pulmonary disease) Kidney stone Hypertension Surgical History No pertinent past surgical history H/O prostatectomy Family History Mother Cancer Other Prostate cancer Social History marital status: number of children: 2 Smoking Status: Current every day smoker Tobacco: How many years used: 10 alcohol intake: current substance use type: does not use Smoking Status: Current every day smoker alcohol intake frequency: 0-2 drinks per day Alcohol type: wine Substance Use Type: does not use Exam Initial Vital Signs Initial Vital Signs: Vital Signs Temperature 97.9 F 08/18/23 09:05 Pulse Rate 100 H 08/18/23 09:05 Respiratory Rate 20 08/18/23 09:05 Blood Pressure 174/96 H 08/18/23 09:05 Pulse Oximetry 98 08/18/23 09:05 Oxygen Delivery Method Room Air 08/18/23 09:05 Const: Awake, alert, no acute distress, nontoxic appearing Eyes: PERRL, EOMI, conjunctiva normal ENT: Atraumatic, dentition normal, mucous membranes moist Cardiac: regular rate, regular rhythm RESP: unlabored, clear bilaterally, no wheezing GI: Atraumatic, soft, nontender, nondistended, no rebound, no guarding MSK: Atraumatic, full range of motion, pulses equal Skin: Warm, Dry, intact, no rashes Neuro: AO x3, CN II-XII grossly intact, moves all extremities Psych: affect normal, mood normal, not suicidal, not homicidal Course Course Course Narrative: Well-appearing patient with lightheaded and dizzy sensation. NIH 0, no focal neurologic deficit. We will order laboratory work and CT imaging of the brain. Since patient does endorse nightly alcohol use will order ammonia level. Orders Ordered: ED Orders 08/18/23 09:12 Ammonia (NH3) Stat CBC Auto Diff [Complete Blood Count AUTO DIFF] Stat CMP [Comprehensive Metabolic Panel] Stat MAG [Magnesium] Stat PT [Prothrombin Time INR] Stat 08/18/23 09:13 CT head/brain wo con Stat Chest [XR chest 1V] Stat 08/18/23 10:00 UA Complete [Urinalysis and Microscopic] Stat Reevaluation(s) Reevaluation #1: Laboratory work and imaging is unremarkable, no explanation for patient's symptoms. Patient states that while he was in the emergency department in an ED bed he began to feel much better. He currently feels tired but his dizzy sensation is resolved. I recommended decreasing alcohol intake and following up with primary care physician. Vital Signs Vital signs: Vital Signs - 8 hr 08/18/23 09:05 08/18/23 09:15 08/18/23 09:16 Temperature 97.9 F Pulse Rate 100 H 102 H Respiratory Rate 20 Blood Pressure 174/96 H 179/99 H Pulse Oximetry 98 Oxygen Delivery Method Room Air 08/18/23 09:16 08/18/23 09:29 08/18/23 09:29 Temperature Pulse Rate 101 H 98 H Respiratory Rate 14 Blood Pressure 157/80 H Pulse Oximetry 99 97 Oxygen Delivery Method Room Air Room Air 08/18/23 09:30 08/18/23 09:30 08/18/23 10:00 Temperature Pulse Rate 104 H Respiratory Rate 17 Blood Pressure 149/81 H 152/85 H Pulse Oximetry 96 Oxygen Delivery Method 08/18/23 10:00 08/18/23 10:30 08/18/23 10:30 Temperature Pulse Rate 95 H 86 Respiratory Rate 13 20 Blood Pressure 145/78 H Pulse Oximetry 97 95 Oxygen Delivery Method Room Air 08/18/23 11:00 08/18/23 11:01 08/18/23 11:18 Temperature Pulse Rate 100 H 96 H 92 H Respiratory Rate 22 22 Blood Pressure Pulse Oximetry 94 94 93 Oxygen Delivery Method 08/18/23 11:20 Temperature Pulse Rate Respiratory Rate Blood Pressure 164/87 H Pulse Oximetry Oxygen Delivery Method Medical Decision Making Differential Diagnosis Differential Diagnosis: Anemia, hypoglycemia, hyperammonemia Lab Data 08/18/23 09:12 08/18/23 09:12 Labs: Lab Results 08/18/23 08/18/23 Range/Units 09:12 10:00 WBC 7.9 (4.5-11.0) X10^3/uL RBC 4.53 (4.5-5.9) X10^6/uL Hgb 14.7 (13.5-17.5) g/dL Hct 42.2 (41-53) % MCV 93.2 (80-100) fL MCH 32.5 (26-34) PG MCHC 34.8 (30-36) % RDW 12.7 (11.6-14.8) % Plt Count 187 (150-400) X10^3/uL Neut % (Auto) 61.7 (50-75) % Lymph % (Auto) 28.7 (25-40) % Gibson % (Auto) 6.5 (3-14) % Eos % (Auto) 2.1 (2-4) % Baso % (Auto) 1.0 (0-2) % Neut # (Auto) 4900 (4696-7152) /uL Lymph # (Auto) 2300 (9877-8767) /uL Gibson # (Auto) 500 (0-900) /uL Eos # (Auto) 200 (0-450) /uL Baso # (Auto) 100 (0-100) /uL PT 11.1 (10.1-12.7) SECONDS INR 1.0 (0.9-1.3) Sodium 138 (137-145) mmol/L Potassium 3.7 (3.4-5.1) mmol/L Chloride 100 (98-107) mmol/L Carbon Dioxide 28 (22-32) mmol/L BUN 22 H (9-20) mg/dL Creatinine 0.88 (0.66-1.25) mg/dL Estimated GFR > 60 (>60) mL/min BUN/Creatinine Ratio 25.0 H (6-22) Glucose 100 (70-100) mg/dL Calcium 9.9 (8.4-10.2) mg/dL Magnesium 2.0 (1.6-2.3) mg/dL Total Bilirubin 0.3 (0.2-1.3) mg/dL AST 49 (17-59) IU/L ALT 85 H (<50) IU/L Alkaline Phosphatase 100 (38-126) U/L Ammonia 9 (9-30) umol/L Total Protein 8.1 (6.3-8.2) g/dL Albumin 4.8 (3.5-5.0) g/dL Globulin 3.3 (1.7-4.1) g/dL Albumin/Globulin Ratio 1.5 (1.0-2.8) Urine Color Yellow Urine Appearance Clear Urine pH 6.5 (4.5-8.0) Ur Specific [place] <=1.005 (1.000-1.035) Urine Protein Negative (Negative) Urine Glucose (UA) Negative (Negative) g/dL Urine Ketones Negative (NEGATIVE) Urine Occult Blood Negative (Negative) Urine Nitrate Negative (Negative) Urine Bilirubin Negative (NEGATIVE) Urine Urobilinogen 0.2 (0.2) E.U./dL Ur Leukocyte Esterase Negative (NEGATIVE) Urine RBC None seen (0-5/HPF) Urine WBC 1-5/hpf (0-5/HPF) Ur Squamous Epith Cells 5-10 /hpf H (0-5/HPF) Urine Bacteria None seen (None) Ur Culture Indicated? Cult not indicated Discharge Plan Departure Patient Disposition: Home Clinical Impression: Light-headed feeling Instructions: DI for Dizziness-Nonvertigo Prescriptions: No Action sildenafil PO celecoxib [Celebrex] 200 mg capsule 200 mg PO DAILY Qty: 30 2RF amlodipine 10 mg Tablet 10 mg PO DAILY tadalafil [Cialis] 20 mg Tablet 20 mg PO DAILY PRN (Reason: Sexual Activity) losartan 100 mg tablet 100 mg PO DAILY Spiriva with HandiHaler 18 mcg capsule, w/inhalation device 1 cap inhalation DAILY hydrochlorothiazide 25 mg tablet 25 mg PO DAILY fluticasone propion-salmeterol [Advair Diskus] 250-50 mcg/dose blister with device 1 inh inhalation .PRN albuterol sulfate 2.5 mg /3 mL (0.083 %) solution for nebulization 2.5 mg inhalation .PRN Breztri Aerosphere 160-9-4.8 mcg/actuation HFA aerosol inhaler 2 inh inhalation BID Qty: 10.7 5RF Rx Instructions: rinse mouth with water, gargle and spit after each use; replaces advair and spiriva montelukast [Singulair] 10 mg tablet 10 mg PO BEDTIME Qty: 30 5RF furosemide [Lasix] PO ciclopirox topical triazolam PO Referrals: Hannah Baker MD [Primary Care Provider] - Stand Alone Forms: Patient Portal/API
[2023-08-18 09:32] LABS: Prothrombin Time 11.1 SECONDS (10.1-12.7)
[2023-08-18 09:38] LABS: Alanine Aminotransferase 85 IU/L (<50); Albumin 4.8 g/dL (3.5-5.0); Albumin Globulin Ratio 1.5 (1.0-2.8); Alkaline Phosphatase 100 U/L (38-126); Ammonia (NH3) 9 umol/L (9-30); Aspartate Aminotransferase 49 IU/L (17-59); Bilirubin Total 0.3 mg/dL (0.2-1.3); Blood Urea Nitrogen 22 mg/dL (9-20); Calcium 9.9 mg/dL (8.4-10.2); Carbon Dioxide 28 mmol/L (22-32); Chloride 100 mmol/L (98-107); Estimated Glomerular Filt Rate > 60 mL/min (>60); Globulin 3.3 g/dL (1.7-4.1); Glucose 100 mg/dL (70-100); HEMOLYSIS < 15 (0-50); Potassium 3.7 mmol/L (3.4-5.1); Sodium 138 mmol/L (137-145); Total Protein 8.1 g/dL (6.3-8.2)
--- NOTE | 2023-08-18 10:07 | PC.NURSE ---
Pt states feeling better than when he first arrived to ER. He currently denies worsening SOB, although he has SOB at baseline due to COPD from smoking cigarettes. Pt quit smoking 4years ago. Pt has blurriness in his vision and was having difficulty reading his computer screen at work.
[2023-08-18 10:36] LABS: Appearance Urine UA CLEAR; Bilirubin Urine UA NEGATIVE (NEGATIVE); Color Urine UA YELLOW; Glucose Urine UA NEGATIVE (Negative); Ketones Urine UA NEGATIVE (NEGATIVE); Leukocyte Esterase Urine UA NEGATIVE (NEGATIVE); Nitrite Urine UA NEGATIVE (Negative); Occult Blood Urine UA NEGATIVE (Negative); Protein Urine UA NEGATIVE (Negative); Specific Gravity Urine UA <=1.005 (1.000-1.035); Urobilinogen Urine UA 0.2 E.U./dL (0.2); pH Urine UA 6.5 (4.5-8.0)
[2023-08-18 10:50] LABS: Bacteria Urine None Seen; RBC Urine None Seen (0-5/HPF); WBC Urine 1-5/HPF (0-5/HPF)
[2023-08-18 10:51] LABS: Culture Indicated Urine Cult Not Indicated; Squamous Epithelial Cell Urine 5-10 /HPF (0-5/HPF)
== END 2023-08-18 11:23 | disposition home or self-care (01) ==
PROVIDERS: Emergency Provider Emergency Medicine; PCP Family Medicine
DX: R42 Dizziness and giddiness (principal); R06.00 Dyspnea, unspecified
CPT/HCPCS: 36415; 70450; 71045; 80053; 81001; 82140; 83735; 85025; 85610; 99283; 99284

== ENCOUNTER → 2023-08-29 07:08 | Outpatient (CLI) | payer OTHER, SELFPAY ==
--- NOTE | 2023-08-29 | DI.MRI.S_ITS ---
PROCEDURE: MR STROKE Pre- and post-contrast brain MRI, non-contrast brain MR angiogram, pre- and postcontrast neck MR angiogram INDICATIONS: TIA TECHNIQUE: Brain: Noncontrast axial T1 spin echo, axial T2 fast spin echo, sagittal and axial FLAIR, coronal T2 fast spin echo, axial gradient echo, axial diffusion and ADC through the brain. After the administration of contrast, axial 3D VIBE of the cranial vasculature and brain. Brain MRA: Non-contrast 3-D time of flight MR angiogram, with multiple byjfrhm-rwdmnrmnn-brczkxjmfg (MIP) reformats performed. Neck MRA: Axial and sagittal TruFISP through the neck. Coronal dynamic MR angiogram during administration of contrast in the arterial and venous phases, with 3-dimenstional lxdbmbo-poalmtyhu-qflotsrkbb (MIP) reformats constructed from subtraction images. COMPARISON: [facility], CT, CT HEAD/BRAIN WO CON, 08/18/2023, 9:21. FINDINGS: Image quality: Diagnostic, with note made of motion artifact. BRAIN: CSF spaces: Ventricles are normal in size and shape. Basal cisterns are patent. No extra-axial fluid collections. Brain: No intracranial bleeds or mass effects. June-white matter interface is normal. Diffusion weighted images show no acute ischemic insults. Brainstem appears normal. Normal intravascular flow voids are present. No abnormal intracranial enhancement. Skull and face: Calvarial marrow signal is normal. Orbits appear normal. Sinuses: Sinuses and mastoids are clear. BRAIN MR ANGIOGRAM: Anterior circulation: Intracranial internal carotid arteries are normal in size and enhancement. The flow within the paired anterior cerebral arteries is normal and symmetric. There is a diminutive left A1 segment, with a corresponding robust right A1 segment. This is considered to be a normal developmental variant of the [place], of typically no clinical consequence. The flow within the middle cerebral arteries is otherwise normal and symmetric. The anterior communicating artery is seen. No stenoses, occlusions, or aneurysms. Posterior circulation: The visualized portions of the vertebral arteries demonstrate normal caliber, and join to form a normal appearing basilar artery. The flow within the posterior cerebral arteries is normal and symmetric. No stenoses, occlusions, or aneurysms. NECK MR ANGIOGRAM: Carotids: Great vessels demonstrate a conventional anatomy as they arise from the aortic arch. The origins of the common carotid arteries appear patent. The calibers and courses of both common carotid arteries are normal. The bifurcation regions appear normal bilaterally. The internal carotid arteries demonstrate normal course and caliber. Posterior circulation: The origins of the vertebral arteries appear patent. More superior portions of both vertebral arteries demonstrate normal course and caliber, and join to form a normal appearing basilar artery. Miscellaneous: Subclavian arteries appear patent. Pre-contrast images through the neck show no soft tissue abnormalities. IMPRESSION: BRAIN MRI: No findings of acute or subacute infarction can be seen. No masses or abnormal enhancement can be seen. BRAIN MR ANGIOGRAM: No significant intracranial arterial abnormality is seen. Egsiyf-fo-Hcbuja developmental anomalies are incidentally noted. NECK MR ANGIOGRAM: Within the arteries of the neck, no hemodynamically significant stenosis can be seen. Dictated by: Bc Servin M.D. on 08/29/2023 at 10:47 Approved by: Bc Servin M.D. on 08/29/2023 at 10:50
== END ==
PROVIDERS: PCP Family Medicine; Referring Provider Family Medicine; Visit Provider Family Medicine
DX: G45.9 Transient cerebral ischemic attack, unspecified (principal); R41.0 Disorientation, unspecified; Z85.46 Personal history of malignant neoplasm of prostate
CPT/HCPCS: 36415; 70548; 70553; 84153; A9579

== ENCOUNTER → 2023-08-29 07:11 | Outpatient (CLI) | payer OTHER, SELFPAY ==
[2023-08-29 09:52] LABS: Prostate Specific Antigen < 0.064 ng/mL (0.10-4.00)
== END ==
PROVIDERS: Specialist; PCP Family Medicine; Referring Provider Urology; Visit Provider Urology
DX: Z85.46 Personal history of malignant neoplasm of prostate (principal)
CPT/HCPCS: 36415; 84153

== ENCOUNTER → 2023-11-25 08:10 | Outpatient (CLI) | payer OTHER, SELFPAY ==
[2023-11-30 09:40] LABS: Testosterone % Fr + Wkly bound 20.1 % (9.0-46.0); Testosterone, Total 154.3 ng/dL (264.0-916.0)
== END ==
PROVIDERS: PCP Family Medicine; Referring Provider Specialist; Visit Provider Specialist
DX: C61 Malignant neoplasm of prostate (principal); E29.1 Testicular hypofunction; N52.35 Erectile dysfunction following radiation therapy
CPT/HCPCS: 36415; 84403

== ENCOUNTER 2023-11-25 08:11 | Outpatient (CLI) | payer OTHER, SELFPAY ==
[2023-11-25] VITALS (8 sets, daily range): BP systolic 110–170; BP diastolic 64–89; PULSE 71–87; RESP 1–20; TEMP 36.7; O2SAT 96–97
--- NOTE | 2023-11-25 09:15 | DI.RAD.S_ITS ---
PROCEDURE: PAIN C/T INTERLAMINAR INJECT INDICATIONS: RADICULOPATHY COMPARISON: None. FINDINGS: Fluoroscopic spot filming was performed to verify placement of spinal needles at the C6-7 level(s), as labeled on the films. Appropriate location(s) of the needle tip(s) was confirmed by injection of iodinated contrast. IMPRESSION: Fluoro guidance was provided intraoperatively for C6-7 translaminar epidural steroid injection performed by the ordering physician. Dictated by: Sathya Delong M.D. on 11/25/2023 at 12:06 Approved by: Sathya Delong M.D. on 11/25/2023 at 12:07
[2023-11-25] MEDS: MIDAZOLAM 2 MG/2 ML VIAL IV (09:35)
[2023-11-25] MEDS: BUPIVACAINE 0.25% (PF) VIAL 2 ML INJ (09:42)
[2023-11-25] MEDS: iopamidoL 15 ML VIAL 3 ML INJ (09:42)
[2023-11-25] MEDS: DEXAMETHASONE 10 MG/ML VIAL 20 MG INJ (09:42)
--- NOTE | 2023-11-25 09:56 | P.PCN_ITS ---
Date/Time/Diagnoses Date of procedure: 11/25/23 Time of procedure: 09:57 Pre-procedure diagnosis: 1. CERVICAL STENOSIS, 2. CERVICAL HNP WITH UPPER EXTREMITY RADICULAR FEATURES Post-procedure diagnosis: same Procedure Notes Procedure: 1. FLUORSCOPICALLY GUIDED CONTRAST CONTROLLED INTERLAMINAR EPIDURAL STEROID INJECTION - C6/7 TL ALEXEY Indications: Valentin is referred by Dr. Baker for treatment of Cervical HNP with Upper Extremity Paresthesias. Physician: Carlos Miller Total Fluoroscopy time (seconds): 35 Total sedation minutes: 18 Complications: none Procedure in detail & Post-procedure care: FINDINGS Cervical Stenosis due to disc deterioration and nerve root irritation and nerve root irritation DESCRIPTION OF PROCEDURE Fluoroscopically guided, contrast-controlled C6/7 translaminar epidural steroid injection with conscious sedation. Following review of allergy and review of potential side effects and complications, including, but not necessarily limited to, infection, allergic reaction, local tissue breakdown, temporary as well as permanent nerve injury, stroke, paralysis, and possible , the patient indicated that patient understood and agreed to proceed. An informed consent document was signed by the patient, witnessed by a nurse, and placed in the patient's chart. Additionally, other treatment options including modalities, medications, and physical therapy were reviewed with the patient. After review of previous anaesthesic history and IV conscious sedation the patient was deemed safe to proceed with today?s procedure with IV conscious vivi tion as ASA class II designation. Safety time-out was performed to confirm patient ID, procedure to be performed and site of procedure. IV sedation was accomplished with a combination of 2mg of Versed administered by the RN after DO order, titrated to patient comfort during the course of the procedure while the patient remained responsive to all verbal commands. In the prone position, following sterile prep and drape of the cervical region, the C6/7 translaminar space was identified fluoroscopically. The skin was anesthetized via a 25-gauge 1.5-inch needle with 1% lidocaine solution. At this point, a 25-gauge, 2.5-inch short bevel spinal needle was atraumatically introduced and advanced under fluoroscopic guidance into epidural space at the C6/7 translaminar space. Depth was confirmed on lateral view. Radiological data, including multiple fluoroscopic views of the cervical spine, reveal a spinal needle at the C6/7 translaminar space. Lateral views then show placement of the needle in the epidural space. Subsequent views show contrast material flowing superiorly and inferiorly in the epidural space. DSA fluoroscopy with live contrast injection, once again, confirmed no vascular or intrathecal uptake. At this point, using loss of resistance technique with saline and air, the epidural space was entered. Following negative aspiration, injection of approximately 1.5 cc of Isovue-200 with live fluoroscopy in the AP view confirmed epidural flow in the epidural space without vascular or intrathecal uptake observed. Subsequently, a test dose of 1 cc of 1% lidocaine solution was injected and patient was observed for two minutes without signs or symptoms of complications, including abdominal pain, shortness of breath, bilateral upper or lower extremity weakness, nausea and vomiting, prior to steroid injection. At this point, 2cc or 20mg of dexamethasone was then injected without incident. The patient tolerated the procedure well without signs or symptoms of com plications prior to being transferred to the recovery area for further monitoring, The patient was then transferred to the recovery area where they were observed for an appropriate period of time after the injection. The patient reported a VAS score of 6 prior to the procedure and a post-procedure VAS of 0. POST OP INSTRUCTIONS The patient was provided a Pain Log to continue to record their response to the target-specific procedure prior to follow-up visit with the referring provider. Additionally, specific post-injection care instructions and a contact number to our office were provided if concerns arise regarding possible complications associated with the procedure are suspected.
== END 2023-11-25 10:10 | disposition home or self-care (01) ==
LOC: RAD 08:11
PROVIDERS: PCP Family Medicine; Referring Provider Physical Medicine & Rehabilitation; Visit Provider Physical Medicine & Rehabilitation
DX: M48.02 Spinal stenosis, cervical region (principal); M50.123 Cervical disc disorder at C6-C7 level with radiculopathy; C61 Malignant neoplasm of prostate; E29.1 Testicular hypofunction; N52.35 Erectile dysfunction following radiation therapy
CPT/HCPCS: 36415; 62321; 84403; 99152; J1100; J2250; J3490

== ENCOUNTER → 2024-02-16 11:26 | Outpatient (CLI) | payer OTHER, SELFPAY ==
[2024-02-16 12:24] LABS: Hematocrit 41.9 % (41-53); Hemoglobin 14.2 g/dL (13.5-17.5); Mean Corpuscular HGB Conc 33.8 % (30-36); Mean Corpuscular Hemoglobin 31.7 PG (26-34); Mean Corpuscular Volume 93.8 fL (80-100); Platelet Count 147 X10^3/uL (150-400); Red Blood Cell Count 4.46 X10^6/uL (4.5-5.9); Red Cell Distribution Width 13.4 % (11.6-14.8); White Blood Cell Count 8.9 X10^3/uL (4.5-11.0)
[2024-02-16 13:08] LABS: Prostate Specific Antigen < 0.064 ng/mL (0.10-4.00)
== END ==
PROVIDERS: PCP Family Medicine; Referring Provider Specialist; Visit Provider Specialist
DX: R68.82 Decreased libido (principal); E29.1 Testicular hypofunction; N52.35 Erectile dysfunction following radiation therapy; C61 Malignant neoplasm of prostate
CPT/HCPCS: 36415; 84153; 84403; 85027

== ENCOUNTER 2024-08-18 14:23 | Emergency (ER) | payer OTHER, SELFPAY ==
[2024-08-18] VITALS (14 sets, daily range): BP systolic 149–225; BP diastolic 75–108; PULSE 76–87; RESP 12–32; TEMP 36.8; O2SAT 92–98; BMI 35.2
--- NOTE | 2024-08-18 14:54 | PC.NURSE ---
Patient has been taking HTN meds. States he is maxed out on his blood pressure medications. Has made a lot of recent changes in diet, exercise. Patient blood pressure log shows consistent elevated blood pressures. Denies abnormal headaches, chest pain or SOB.
--- NOTE | 2024-08-18 16:40 | ED_ITS ---
HPI - General Adult General Chief complaint: Hypertension Stated complaint: Sent by , High BP Time Seen by Provider: 08/18/24 16:40 Source: patient Mode of arrival: Ambulatory Limitations: no limitations History of Present Illness HPI narrative: [age] old male presents with complaint of hypertension, had blood pressure at [facility] which was 190/113. Patient states he has been checking his blood pressure regularly as per his family practice physician. He has been averaging about 160s with a a diastolic in the 105 range for the past 30 days. Patient is on losartan 100 mg, amlodipine 10 mg and hydrochlorothiazide 25 mg. Patient states his primary care physician set labs today he is supposed to follow up but does not have a dedicated appointment. Patient was at the [facility] had his blood pressure checked because he is supposed to be checking it. He denies any symptoms. His notes that he has had some shoulder discomfort at times but none today, denies any shortness of breath, no lightheadedness or passing out, no nausea or vomiting, occasional swelling in his lower extremities. No other new GI symptoms. Patient states he has had prior prostatectomy for prostate cancer. No known drug allergies. No tobacco, has a about a bottle of wine nightly, no recreational drugs. Related Data Home Medications Medication Instructions Recorded Confirmed sildenafil PO 12/22/18 08/12/24 amlodipine 10 mg tablet 10 mg PO DAILY 03/17/19 08/12/24 tadalafil 20 mg tablet (Cialis) 20 mg PO DAILY PRN Sexual Activity 03/17/19 08/12/24 ciclopirox topical 03/06/22 08/12/24 furosemide [Lasix] PO 03/06/22 08/12/24 triazolam PO 03/06/22 08/12/24 albuterol sulfate 2.5 mg/3 mL 2.5 mg inhalation .PRN 04/28/23 08/12/24 (0.083 %) solution for nebulization hydrochlorothiazide 25 mg tablet 25 mg PO DAILY 04/28/23 08/12/24 losartan 100 mg tablet 100 mg PO DAILY 04/28/23 08/12/24 tiotropium bromide 18 mcg capsule 1 cap inhalation DAILY 04/28/23 08/12/24 with inhalation device (Spiriva with HandiHaler) rosuvastatin 5 mg tablet 5 mg PO DAILY 11/06/23 08/12/24 Previous Rx's Medication Instructions Recorded testosterone 2 pump topical QAM #75 grams 12/02/23 celecoxib 200 mg capsule (Celebrex) 200 mg PO DAILY #30 caps 07/28/24 albuterol sulfate 90 mcg/actuation 2 inh inhalation Q4-6H PRN 08/12/24 aerosol inhaler shortness of breath or wheezing #54 grams budesonide 160 mcg-glycopyr 9 2 inh inhalation BID #10.7 grams 08/12/24 mcg-formot 4.8 mcg/actuation HFA inhaler (Breztri Aerosphere) montelukast 10 mg tablet 10 mg PO ONCE PM #30 tabs 08/12/24 Allergies Allergy/AdvReac Type Severity Reaction Status Date / Time No Known Drug Allergies Allergy Verified 08/12/24 14:53 Review of Systems Review of Systems ROS Unobtainable: All systems reviewed & are unremarkable except as noted in HPI and below Patient History Medical History Low libido Hypogonadism in male Cervical radiculopathy Shoulder impingement syndrome DJD of both shoulders CTS (carpal tunnel syndrome) Erectile dysfunction due to and not concurrent with radiation therapy History of malignant neoplasm of prostate Prostate cancer Prostate cancer Obstructive sleep apnea Insomnia Excessive daytime sleepiness Nicotine dependence, unspecified, uncomplicated COPD (chronic obstructive pulmonary disease) Kidney stone Hypertension Surgical History No pertinent past surgical history H/O prostatectomy Family History Mother Cancer Other Prostate cancer Social History marital status: number of children: 2 Smoking Status: Former smoker Tobacco: How many years used: 10 alcohol intake: current substance use type: does not use Smoking Status: Former smoker alcohol intake frequency: 3 or more drinks per day Alcohol type: wine Substance Use Type: does not use Exam Narrative Exam Narrative: GENERAL: Alert and oriented x three, well-appearing male in no acute distress. HEENT: Head normocephalic, atraumatic, EOMI, pupils reactive, face symmetric, moist mucous membranes NECK: Supple, full range of motion CARDIOVASCULAR: Regular rate and rhythm without murmurs, rubs or gallops. RESPIRATORY: Breath sounds equal bilaterally, no wheezes rales or rhonchi. ABDOMEN: Soft, nontender. Normoactive bowel sounds all 4 quadrants. No guarding or rebound, rigidity, no mass : No CVA tenderness EXTREMITIES: Normal range of motion, no clubbing or edema. Neurovascularly intact NEUROLOGICAL: Cranial nerves II through XII grossly intact. Moving all extremities SKIN: Warm, dry, no petechiae, no rashes or lesions. Initial Vital Signs Initial Vital Signs: Vital Signs Temperature 98.2 F 08/18/24 14:27 Pulse Rate 84 08/18/24 14:27 Respiratory Rate 16 08/18/24 14:27 Blood Pressure 194/100 H 08/18/24 14:27 Pulse Oximetry 96 08/18/24 14:27 Oxygen Delivery Method Room Air 08/18/24 14:27 Course Orders Ordered: Discontinued Medications Metoprolol Succinate (Metoprolol Er 25 Mg Tablet) 25 mg PO NOW ONE Stop: 08/18/24 17:58 Last Admin: 08/18/24 18:02 Dose: 25 mg Documented By: TIM Potassium Chloride (Potassium Chloride 20 Meq Tab) 40 meq PO NOW ONE Stop: 08/18/24 17:24 Last Admin: 08/18/24 17:28 Dose: 40 meq Documented By: ALYCE Vital Signs Vital signs: Vital Signs - 8 hr 08/18/24 14:27 08/18/24 14:40 08/18/24 14:49 Temperature 98.2 F Pulse Rate 84 83 Respiratory Rate 16 Blood Pressure 194/100 H 225/105 H Pulse Oximetry 96 94 Oxygen Delivery Method Room Air 08/18/24 14:51 08/18/24 14:51 08/18/24 14:53 Temperature Pulse Rate 83 86 Respiratory Rate 19 12 Blood Pressure 189/102 H 189/102 H Pulse Oximetry 93 98 Oxygen Delivery Method Room Air Room Air 08/18/24 15:00 08/18/24 15:00 08/18/24 15:30 Temperature Pulse Rate 84 Respiratory Rate 14 Blood Pressure 184/96 H 170/99 H Pulse Oximetry 92 Oxygen Delivery Method 08/18/24 15:30 08/18/24 16:00 08/18/24 16:00 Temperature Pulse Rate 87 86 Respiratory Rate 12 14 Blood Pressure 163/100 H Pulse Oximetry 93 94 Oxygen Delivery Method Room Air 08/18/24 16:18 08/18/24 16:18 08/18/24 16:30 Temperature Pulse Rate 83 76 Respiratory Rate 32 H 23 Blood Pressure 189/108 H Pulse Oximetry 94 94 Oxygen Delivery Method 08/18/24 16:40 08/18/24 16:40 08/18/24 17:00 Temperature Pulse Rate 80 Respiratory Rate 19 Blood Pressure 165/94 H 162/87 H Pulse Oximetry 94 Oxygen Delivery Method Room Air Room Air 08/18/24 17:00 Temperature Pulse Rate 81 Respiratory Rate 17 Blood Pressure Pulse Oximetry 93 Oxygen Delivery Method Medical Decision Making Lab Data 08/18/24 16:35 08/18/24 16:32 Labs: Lab Results 08/18/24 08/18/24 Range/Units 16:32 16:35 WBC 8.0 (4.5-11.0) X10^3/uL RBC 5.12 (4.5-5.9) X10^6/uL Hgb 16.5 (13.5-17.5) g/dL Hct 47.7 (41-53) % MCV 93.2 (80-100) fL MCH 32.2 (26-34) PG MCHC 34.5 (30-36) % RDW 13.5 (11.6-14.8) % Plt Count 139 L (150-400) X10^3/uL Neut % (Auto) 69.2 (50-75) % Lymph % (Auto) 19.0 L (25-40) % [place] % (Auto) 9.3 (3-14) % Eos % (Auto) 1.8 L (2-4) % Baso % (Auto) 0.7 (0-2) % Neut # (Auto) 5500 (7674-7632) /uL Lymph # (Auto) 1500 (1593-1164) /uL [place] # (Auto) 700 (0-900) /uL Eos # (Auto) 100 (0-450) /uL Baso # (Auto) 100 (0-100) /uL Sodium 138 (137-145) mmol/L Potassium 2.9 L (3.4-5.1) mmol/L Chloride 99 (98-107) mmol/L Carbon Dioxide 32 (22-32) mmol/L BUN 16 (9-20) mg/dL Creatinine 0.92 (0.66-1.25) mg/dL Estimated GFR > 60 (>60) mL/min BUN/Creatinine Ratio 17.4 (6-22) Glucose 107 H (70-100) mg/dL Calcium 9.5 (8.4-10.2) mg/dL Total Bilirubin 0.8 (0.2-1.3) mg/dL AST 61 H (17-59) IU/L ALT 70 H (<50) IU/L Alkaline Phosphatase 81 (38-126) U/L Total Creatine Kinase 152 (55-170) U/L Troponin I < 0.012 (0.01-0.034) ng/mL Total Protein 6.9 (6.3-8.2) g/dL Albumin 4.3 (3.5-5.0) g/dL Globulin 2.6 (1.7-4.1) g/dL Albumin/Globulin Ratio 1.7 (1.0-2.8) Imaging Data Chest x-ray: Radiologist's Impression: [address] [address] XRay Report Signed Patient: Valentin Obando MR#: [id number] : 1965 Acct:[id number] Age/Sex: 59 / M Date of Service: 08/18/24 Loc: ED Accession Number: [id number] Procedure: XR chest 1V Ordering Provider: Yelitza San D.O. PROCEDURE: XR CHEST 1V INDICATIONS: htn TECHNIQUE: One view of the chest was acquired. COMPARISON: [facility], CR, XR CHEST 1V, 08/18/2023, 9:22. [facility], CR, XR CHEST 1V, 07/20/2022, 2:41. FINDINGS: Surgical changes and devices: None. Lungs and pleura: Lungs are clear. No pleural effusions or pneumothorax. Mediastinum: Mediastinal contours appear normal. Heart size is normal. Bones and chest wall: No suspicious bony lesions. Overlying soft tissues appear unremarkable. IMPRESSION: No acute cardiopulmonary abnormality is seen. Approved by: Dean Estrada M.D. on 08/18/2024 at 17:11 ECG Data Attestation: I personally reviewed and interpreted this ECG as follows: Prior ECG tracings: available for review Interpretation: Sinus rhythm rate of 70 [place] 156 QRS of 100 QTC 442, no acute ST elevation depression noted. Patient has prior from 07/20/2022 which appears similar. MDM Narrative Medical decision making narrative: Labs show white count of 8 hemoglobin is 16.5 platelets of 139 patient has had intermittent thrombocytopenia. CMP patient's sodium is normal, potassium is low at 2.9, chloride, CO2 are normal BUN 16 creatinine 0.92 glucose is 107 AST ALT are slightly elevated but consistent with patient's history of alcohol use. Total CK is 152, troponin is negative. Chest x-ray negative for acute change EKG appears similar Patient's blood pressures improved here systolic 160 over 94 without intervention. Patient and I discussed he has had longstanding elevated blood pressure. Patient's potassium was replaced. Discussed with patient, HCTZ could be contributing to his hypokalemia. We will have him hold this medication for now. Spoke with Dr. Baker, we will adjust his medication tomorrow he has not appointment tomorrow. Discharge Plan Departure Patient Disposition: Home Clinical Impression: Hypertension, Hypokalemia Instructions: DI for High Blood Pressure Activity Restrictions/Additional Instructions: Follow up with Dr. Baker tomorrow at your appointment. Continue your losartan and amlodipine. Stop your hydrochlorothiazide this maybe causing some of your hypokalemia or low potassium. Talk with Dr. Baker can she can adjust your medications as needed. You did receive 1 dose of metoprolol here in the department as well as 40 mEq of oral potassium. Please return for any new chest pain or shortness of breath, lightheadedness or passing out, persistent vomiting, new swelling of extremities or other new or concerning changes. Prescriptions: No Action sildenafil PO testosterone 20.25 mg/1.25 gram (1.62 %) gel in metered-dose pump 2 pump topical QAM Qty: 75 3RF Rx Instructions: apply 2 pumps amount over max area of ONE upper arm and shoulder celecoxib [Celebrex] 200 mg capsule 200 mg PO DAILY Qty: 30 2RF amlodipine 10 mg Tablet 10 mg PO DAILY tadalafil [Cialis] 20 mg Tablet 20 mg PO DAILY PRN (Reason: Sexual Activity) losartan 100 mg tablet 100 mg PO DAILY Spiriva with HandiHaler 18 mcg capsule, w/inhalation device 1 cap inhalation DAILY hydrochlorothiazide 25 mg tablet 25 mg PO DAILY albuterol sulfate 2.5 mg /3 mL (0.083 %) solution for nebulization 2.5 mg inhalation .PRN rosuvastatin 5 mg tablet 5 mg PO DAILY Breztri Aerosphere 160-9-4.8 mcg/actuation HFA aerosol inhaler 2 inh inhalation BID Qty: 10.7 11RF Rx Instructions: Rinse mouth with water, gargle and spit after each use albuterol sulfate 90 mcg/actuation HFA aerosol inhaler 2 inh inhalation Q4-6H PRN (Reason: shortness of breath or wheezing) Qty: 54 4RF montelukast 10 mg tablet 10 mg PO ONCE PM Qty: 30 11RF furosemide [Lasix] PO ciclopirox topical triazolam PO Referrals: Hannah Baker MD [Primary Care Provider] - Stand Alone Forms: Patient Portal/API/Survey
--- NOTE | 2024-08-18 16:59 | EKG_ITS ---
[facility] [address] [place] [address] Test Date: 2024-08-18 Pat Name: Valentin Obando Department: [facility] Room: Gender: Male [employer]ness [employer]: : 1965 Requested By: Order Number: [id number] Reading MD: Alpesh Pagan Measurements Intervals [place] Rate: 78 P: 61 GA: 156 QRS: 66 QRSD: 100 T: 50 QT: 388 QTc: 442 Interpretive Statements Normal sinus rhythm Electronically Signed On 08-19-2024 8:33:15 PDT by Alpesh Pagan
--- NOTE | 2024-08-18 17:00 | DI.RAD.S_ITS ---
PROCEDURE: XR CHEST 1V INDICATIONS: htn TECHNIQUE: One view of the chest was acquired. COMPARISON: [facility], , XR CHEST 1V, 08/18/2023, 9:22. [facility], CR, XR CHEST 1V, 07/20/2022, 2:41. FINDINGS: Surgical changes and devices: None. Lungs and pleura: Lungs are clear. No pleural effusions or pneumothorax. Mediastinum: Mediastinal contours appear normal. Heart size is normal. Bones and chest wall: No suspicious bony lesions. Overlying soft tissues appear unremarkable. IMPRESSION: No acute cardiopulmonary abnormality is seen. Approved by: Dean Estrada M.D. on 08/18/2024 at 17:11
[2024-08-18 17:01] LABS: Add Manual Diff / Slide Review NO; Basophils Absolute Auto 100 /uL (0-100); Basophils Percent Auto 0.7 % (0-2); Eosinophils Absolute Auto 100 /uL (0-450); Eosinophils Percent Auto 1.8 % (2-4); Hematocrit 47.7 % (41-53); Hemoglobin 16.5 g/dL (13.5-17.5); Lymphocytes Absolute Auto 1500 /uL (1100-4500); Mean Corpuscular HGB Conc 34.5 % (30-36); Mean Corpuscular Hemoglobin 32.2 PG (26-34); Mean Corpuscular Volume 93.2 fL (80-100); Monocytes Absolute Auto 700 /uL (0-900); Monocytes Percent Auto 9.3 % (3-14); Neutrophils Absolute Auto 5500 /uL (1500-7000); Neutrophils Percent Auto 69.2 % (50-75); Platelet Count 139 X10^3/uL (150-400); Red Blood Cell Count 5.12 X10^6/uL (4.5-5.9); Red Cell Distribution Width 13.5 % (11.6-14.8)
[2024-08-18 17:07] LABS: Alanine Aminotransferase 70 IU/L (<50); Albumin 4.3 g/dL (3.5-5.0); Albumin Globulin Ratio 1.7 (1.0-2.8); Alkaline Phosphatase 81 U/L (38-126); Aspartate Aminotransferase 61 IU/L (17-59); BUN Creatinine Ratio 17.4 (6-22); Bilirubin Total 0.8 mg/dL (0.2-1.3); Blood Urea Nitrogen 16 mg/dL (9-20); Calcium 9.5 mg/dL (8.4-10.2); Carbon Dioxide 32 mmol/L (22-32); Chloride 99 mmol/L (98-107); Estimated Glomerular Filt Rate > 60 mL/min (>60); Globulin 2.6 g/dL (1.7-4.1); Glucose 107 mg/dL (70-100); HEMOLYSIS 26 (0-50); Potassium 2.9 mmol/L (3.4-5.1); Sodium 138 mmol/L (137-145); Total Protein 6.9 g/dL (6.3-8.2)
[2024-08-18 17:23] LABS: Creatine Kinase 152 U/L (55-170)
[2024-08-18] MEDS: POTASSIUM CHLORIDE 20 MEQ TAB 40 MEQ PO (17:28)
[2024-08-18 17:36] LABS: Troponin I < 0.012 ng/mL (0.01-0.034)
[2024-08-18] MEDS: METOPROLOL ER 25 MG TABLET PO (18:02)
== END 2024-08-18 18:22 | disposition home or self-care (01) ==
PROVIDERS: Emergency Provider Emergency Medicine; PCP Family Medicine
DX: I10 Essential (primary) hypertension (principal); E87.6 Hypokalemia
CPT/HCPCS: 36415; 71045; 80053; 82550; 84484; 85025; 93005; 99284

== ENCOUNTER → 2025-02-16 19:01 | Outpatient (CLI) | payer OTHER, SELFPAY ==
--- NOTE | 2025-02-16 19:03 | DI.MRI.S_ITS ---
PROCEDURE: MR HUMERUS RT WO CON INDICATIONS: [place] Tear - right TECHNIQUE: Noncontrast coronal and sagittal T1 spin echo and STIR; axial T1 spin echo and T2 fast spin echo with fat saturation through the right humerus COMPARISON: None. FINDINGS: Image quality: Excellent. Bones: Mild subchondral cystic changes at the greater tuberosity of the right humerus, reactive. Marrow signal of the right humerus is otherwise unremarkable. No suspicious marrow replacing lesion. Soft tissues: There is full-thickness , full width muscle tear of the long head of the biceps tendon, at the level of the mid humerus. The proximal long head of the biceps tendon is redundant, with full-thickness , full width tear at the level of the proximal humerus (07:21). There is moderate sized associated hematoma tracking along the proximal long head of the biceps tendon, extending to the muscle tear. Additional small amount of fluid/hematoma surrounding the distal portion of the biceps muscles. The distal insertion of the biceps tendon at the radial tuberosity is excluded from field of view. IMPRESSION: 1. Full-thickness, full width muscle tear of the long head of the biceps tendon at the level of the mid humerus. 2. Full-thickness, full width tear of the proximal long head of the biceps tendon at the level of the proximal humerus. 3. Associated hematoma in the upper arm. Dictated by: Carolina Huerta M.D. on 02/17/2025 at 9:48 Approved by: Carolina Huerta M.D. on 02/17/2025 at 10:02
== END ==
LOC: MRI 19:02
PROVIDERS: PCP Family Medicine; Referring Provider Family Medicine; Visit Provider Family Medicine
DX: S46.111A Strain of muscle, fascia and tendon of long head of biceps, right arm, initial encounter (principal); S40.021A Contusion of right upper arm, initial encounter; X58.XXXA Exposure to other specified factors, initial encounter
CPT/HCPCS: 73218